=== PATIENT | male | born 1955 | race Caucasian/White ===

== ENCOUNTER 2021-01-09 21:01 | Emergency (ER) | payer MEDICARE, MEDICAID ==
--- NOTE | 2021-01-09 21:23 | ED Physician Documentation ---
History of Present Illness - Stated complaint Stated Complaint: SOA/VOM/TIRED/SORE THROAT - Chief complaint Chief Complaint: Resp - History obtained from History obtained from: Patient - History of Present Illness Timing: How many days ago (3-4) Pain level max: 0 Pain level now: 0 Improved by: rest Worsened by: exertion - Additonal information Additional information: patient c/o nausea and vomiting that began 3-4 days ago but that resolved yesterday. Around the same time as the nausea and vomiting began, he started having shortness of breath, mostly dyspnea on exertion, which persists despite the resolution of his n/v. He also c/o mild sore throat. Denies having, or having had, chest pain/tightness/squeezing/discomfort. He has no known pulmonary and/or cardiac problems. He says he hasn't seen a doctor in several years and stopped taking his glyburide and antihypertensive 2-3 years ago. He says he is COVID vaccinated, J+J vaccine at the beginning of this year. Review of Systems Constitutional: reports: Fatigue. denies: Fever, Chills, Sweats Eyes: reports: Reviewed and negative Ears: reports: Reviewed and negative Nose: reports: Reviewed and negative Throat: reports: Reviewed and negative Cardiac: denies: Chest pain / pressure, Palpitations, Pedal edema, Calf pain Respiratory: reports: Dyspnea, Cough (mild, CORRECTIVE THERAPIST (this is not part of his HPI, but discussed on ROS)). denies: Hemoptysis, Wheezing GI: reports: Nausea (resolved), Vomiting (resolved). denies: Abdominal Pain, Constipation, Diarrhea : reports: Reviewed and negative Skin: reports: Reviewed and negative Musculoskeletal: reports: Reviewed and negative Neurologic: reports: Reviewed and negative PD PAST MEDICAL HISTORY - Past Medical History Past Medical History: Yes Cardiovascular: Hypertension Endocrine/Autoimmune: Type 2 diabetes - Past Surgical History Past Surgical History: No - Present Medications Home Medications: Ambulatory Orders Medication Instructions Recorded Confirmed Losartan Potassium 50 mg PO DAILY #30 tablet 09/16/15 glyBURIDE [Diabeta] 5 mg PO DAILY #30 tablet 09/16/15 - Allergies Allergies/Adverse Reactions: Allergies Allergy/AdvReac Type Severity Reaction Status Date / Time No Known Drug Allergies Allergy Verified 01/09/21 21:16 - Social History Does the pt smoke?: Yes Smoking Status: Current every day smoker PD ED PE NORMAL - Vitals Vital signs reviewed: Yes - General General: Alert and oriented X 3, No acute distress, Well developed/nourished - HEENT HEENT: Moist mucous membranes - Neck Neck: Supple, no meningeal sign - Cardiac Cardiac: No murmur, No gallop, No rub - Respiratory Respiratory: No respiratory distress, Clear bilaterally - Abdomen Abdomen: Soft, Non tender - Derm Derm: Normal color, Warm and dry - Extremities Extremities: No edema - Neuro Neuro: Alert and oriented X 3 PD ED PE EXPANDED - Cardiac Cardiac: Tachy, Regular Rhythm Results - Vitals Vitals: Vital Signs - 24 hr 01/09/21 01/09/21 01/10/21 21:13 23:16 01:00 Temperature 37.5 C Heart Rate 142 H 118 H 109 H Respiratory 20 21 18 Rate Blood Pressure 128/93 H 125/93 H 131/101 H O2 Saturation 95 91 L 96 01/10/21 01/10/21 01/10/21 01:30 03:30 04:49 Temperature Heart Rate 109 H 101 H 110 H Respiratory 16 20 21 Rate Blood Pressure 131/101 H 91/78 115/78 O2 Saturation 95 95 94 Oxygen O2 Source Room air - EKG (time done) No standard instances Rate: Rate (enter#) Rhythm: Sinus tachycardia, LAE [place]: LAD, Other (nonspecific IVCD) Intervals: Normal [place], Wide QRS Ischemia: Q waves (V1-V6, II, II, AVF), Non specific changes (V1, V2) - Labs Labs: Laboratory Tests 01/09/21 01/09/21 01/09/21 22:18 22:18 22:18 WBC 10.2 RBC 6.25 H Hgb 18.2 H Hct 54.5 H MCV 87.2 MCH 29.1 MCHC 33.4 RDW 12.0 Plt Count 192 MPV 11.0 Neut # (Auto) 7.8 H Lymph # (Auto) 1.4 L [place] # (Auto) 0.9 Eos # (Auto) 0.0 Baso # (Auto) 0.0 Absolute Nucleated RBC 0.00 Nucleated RBC % 0.0 Sodium 128 L Potassium 4.0 Chloride 87 L Carbon Dioxide 26 Anion Gap 15.0 H BUN 32 H Creatinine 0.9 Estimated GFR (MDRD) 85 L Glucose 330 H Calcium 8.7 Total Bilirubin 1.8 H AST 41 ALT 28 Alkaline Phosphatase 77 Troponin I High Sens Total Protein 7.4 Albumin 3.4 Globulin 4.0 Albumin/Globulin Ratio 0.9 L Lipase 24 TSH 3.07 Urine Color Urine Clarity Urine pH Ur Specific [place] Urine Protein Urine Glucose (UA) Urine Ketones Urine Occult Blood Urine Nitrite Urine Bilirubin Urine Urobilinogen Ur Leukocyte Esterase Urine RBC Urine WBC Ur Squamous Epith Cells Urine Bacteria Ur Microscopic Review Urine Culture Comments Nasal Adenovirus (PCR) Nasal B. parapertussis DNA (PCR) Nasal Coronavir 229E PCR Nasal Coronavir HKU1 PCR Nasal Coronavir NL63 PCR Nasal Coronavir OC43 PCR Nasal Enterovir/Rhinovir PCR Nasal Influenza B PCR Nasal Influenza A PCR Nasal Parainfluen 1 PCR Nasal Parainfluen 2 PCR Nasal Parainfluen 3 PCR Nasal Parainfluen 4 PCR Nasal RSV (PCR) Nasal B.pertussis DNA PCR Nasal C.pneumoniae (PCR) Edvin Human Metapneumo PCR Nasal M.pneumoniae (PCR) Nasal SARS-CoV-2 (PCR) 01/09/21 01/10/21 01/10/21 22:18 00:10 01:28 WBC RBC Hgb Hct MCV MCH MCHC RDW Plt Count MPV Neut # (Auto) Lymph # (Auto) [place] # (Auto) Eos # (Auto) Baso # (Auto) Absolute Nucleated RBC Nucleated RBC % Sodium Potassium Chloride Carbon Dioxide Anion Gap BUN Creatinine Estimated GFR (MDRD) Glucose Calcium Total Bilirubin AST ALT Alkaline Phosphatase Troponin I High Sens 56286.2 H* Total Protein Albumin Globulin Albumin/Globulin Ratio Lipase TSH Urine Color YELLOW Urine Clarity CLEAR Urine pH 5.5 Ur Specific [place] 1.010 Urine Protein 100 H Urine Glucose (UA) >=1000 H Urine Ketones 40 H Urine Occult Blood MODERATE H Urine Nitrite NEGATIVE Urine Bilirubin NEGATIVE Urine Urobilinogen 1 (NORMAL) Ur Leukocyte Esterase NEGATIVE Urine RBC 6-10 H Urine WBC 0-3 Ur Squamous Epith Cells RARE Squamous Urine Bacteria Rare Ur Microscopic Review INDICATED Urine Culture Comments NOT INDICATED Nasal Adenovirus (PCR) NOT DETECTED Nasal B. parapertussis DNA (PCR) NOT DETECTED Nasal Coronavir 229E PCR NOT DETECTED Nasal Coronavir HKU1 PCR NOT DETECTED Nasal Coronavir NL63 PCR NOT DETECTED Nasal Coronavir OC43 PCR NOT DETECTED Nasal Enterovir/Rhinovir PCR NOT DETECTED Nasal Influenza B PCR NOT DETECTED Nasal Influenza A PCR NOT DETECTED Nasal Parainfluen 1 PCR NOT DETECTED Nasal Parainfluen 2 PCR NOT DETECTED Nasal Parainfluen 3 PCR NOT DETECTED Nasal Parainfluen 4 PCR NOT DETECTED Nasal RSV (PCR) NOT DETECTED Nasal B.pertussis DNA PCR NOT DETECTED Nasal C.pneumoniae (PCR) NOT DETECTED Edvin Human Metapneumo PCR NOT DETECTED Nasal M.pneumoniae (PCR) NOT DETECTED Nasal SARS-CoV-2 (PCR) NOT DETECTED - Rads (name of study) CT chest angio (PE study) Radiology: Discussed with rads, Other (due to electronic difficulties with the PACS system, images cannot be transmitted. Read by on-site radiologist who discussed results with me over phone: no evidence of PE. Left hemidiaphragm elevation, new compared to 2011. Atelectasis left lung base) PD MEDICAL DECISION MAKING - ED course Complexity details: reviewed results, re-evaluated patient, considered differential, d/w patient ED course: Several c/o in HPI. He says after eating a burger 3-4 days ago, he pulled a worm from his mouth and developed nausea, vomiting. Around this time he also developed shortness of breath. The nausea and vomiting resolved yesterday but the dyspnea, particularly on exertion, persist. He denies chest discomfort. He is in sinus tachycardia for entire ED stay (late in stay, metoprolol IV was ordered but SBP 91 precluded this). He has a markedly elevated troponin, and abnormal EKG without previous EKG for comparison. Will need further testing inpatient setting including echo. No echo available through weekend at [facility] [place], and no cardiology services at [facility] [place]. D/w Dr. Palm (cardiology at [facility]), agrees with transfer, recommends heparin, and admit to hospitalist. D/W Dr. Ram, hospitalist at [facility], accepts transfer. He asks that atorvastatin 40mg be given as well as metoprolol (see above). Note that we had already contacted [facility], [facility] ([place]), [facility], and [facility] and no tele beds available. [facility] was contacted but did not hear back from them. [facility] also has no beds. Departure - Departure Disposition: 02 Transfer Acute Care Hosp Clinical Impression: NSTEMI (non-ST elevated myocardial infarction) Condition: Stable Discharge Date/Time: 01/10/21 05:08
[2021-01-09] MEDS ORDERED: IOPAMIDOL-300 100 ML VIAL ONE (22:28)
[2021-01-09 22:29] LABS: BASOPHILS % (AUTO) 0.4 %; EOSINOPHILS % (AUTO) 0.3 %; HCT - HEMATOCRIT 54.5 % (42.0-52.0); HGB - HEMOGLOBIN 18.2 g/dL (14.0-18.0); LYMPHOCYTES # (AUTO) 1.4 10^3/uL (1.5-3.5); LYMPHOCYTES % (AUTO) 13.6 %; MEAN CORPUSCULAR HEMOGLOBIN 29.1 pg (27.0-31.0); MEAN CORPUSCULAR HGB CONC 33.4 g/dL (32.0-36.0); MEAN CORPUSCULAR VOLUME 87.2 fL (80.0-94.0); MONOCYTES # (AUTO) 0.9 10^3/uL (0.0-1.0); MONOCYTES % (AUTO) 8.8 %; NEUTROPHILS # (AUTO) 7.8 10^3/uL (1.5-6.6); NEUTROPHILS % (AUTO) 76.7 %; PLT - PLATELET COUNT 192 10^3/uL (130-450); RED BLOOD COUNT 6.25 10^6/uL (4.70-6.10); WHITE BLOOD COUNT 10.2 x10^3/uL (4.8-10.8)
[2021-01-09 22:36] LABS: ALBUMIN 3.4 g/dL (3.2-5.5); ALBUMIN/GLOBULIN RATIO 0.9 (1.0-2.2); BILIRUBIN,TOTAL 1.8 mg/dL (0.2-1.0); CALCIUM 8.7 mg/dL (8.5-10.3); CREATININE 0.9 mg/dL (0.6-1.2); TOTAL PROTEIN 7.4 g/dL (6.7-8.2)
[2021-01-09] MEDS ORDERED: IOPAMIDOL-300 100 ML VIAL IVP ONE (23:20)
[2021-01-10 00:21] LABS: BILIRUBIN,URINE NEGATIVE (NEGATIVE); CLARITY,URINE CLEAR (CLEAR); GLUCOSE, URINE (UA) >=1000 mg/dL (NEGATIVE); KETONES,URINE (UA) 40 mg/dL (NEGATIVE); LEUKOCYTE ESTERASE, URINE NEGATIVE (NEGATIVE); NITRITE,URINE NEGATIVE (NEGATIVE); OCCULT BLOOD,URINE MODERATE (NEGATIVE); PH,URINE 5.5 PH (5.0-7.5); PROTEIN,URINE 100 mg/dL (NEGATIVE); UROBILINOGEN,URINE 1 (NORMAL) E.U./dL (NORMAL)
[2021-01-10 00:24] LABS: BACTERIA,URINE Rare /HPF (None Seen); SQUAMOUS EPITHELIAL CELL,UR RARE Squamous (<= Few); WBC,URINE 0-3 /HPF (0-3)
[2021-01-10 02:23] LABS: B. PARAPERTUSSIS- RESP PCR PAN NOT DETECTED; B. PERTUSSIS- RESP PCR PANEL NOT DETECTED; C. PNEUMONIAE- RESP PCR PANEL NOT DETECTED; CORONAVIRUS 229E-RESP PCR NOT DETECTED; CORONAVIRUS HKU1-RESP PCR NOT DETECTED; CORONAVIRUS NL63-RESP PCR NOT DETECTED; CORONAVIRUS OC43-RESP PCR NOT DETECTED; HUMAN METAPNEUMOVIRUS NOT DETECTED; INFLUENZA A- RESP PCR PANEL NOT DETECTED; INFLUENZA B - RESP PCR PANEL NOT DETECTED; M. PNEUMONIAE- RESP PCR PANEL NOT DETECTED; PARAINFLUENZA VIRUS 1 NOT DETECTED; PARAINFLUENZA VIRUS 2 NOT DETECTED; PARAINFLUENZA VIRUS 3 NOT DETECTED; PARAINFLUENZA VIRUS 4 NOT DETECTED; RHINOVIRUS/ENTEROVIRUS NOT DETECTED; RSV- RESP PCR PANEL NOT DETECTED; SARS-CoV-2 -RESP PCR PANEL NOT DETECTED
[2021-01-10] MEDS ORDERED: ASPIRIN CHEW 81 MG TABLET PO STA (03:10)
[2021-01-10] MEDS ORDERED: ATORVASTATIN 40 MG TABLET PO STA (03:11)
[2021-01-10] MEDS ORDERED: METOPROLOL 5 MG/5 ML VIAL IVP STA (03:12)
[2021-01-10] MEDS ORDERED: HEPARIN 25000UNITS/500ML (D5W) 25,000 UNIT/500 ML BAG IV SCH (04:00)
[2021-01-10 04:50] VITALS: BP 115/78
--- NOTE | 2021-01-10 13:29 | CT Report ---
PROCEDURE: ANGIO CHEST W/WO INDICATIONS: dyspnea, tachycardia, low pulse ox CONTRAST: IV CONTRAST: Isovue 300 ml: 100 PO CONTRAST: *NO PO CONTRAST TECHNIQUE: After the administration of intravenous contrast, images were acquired from the pulmonary apices to t he posterior costophrenic angles. 3-dimensional maximum intensity projection (MIP) coronal and sagit neftaly reformats were then acquired through the thorax. For radiation dose reduction, the following was used: automated exposure control, adjustment of mA and/or kV according to patient size. COMPARISON: Chest radiographs 08/21/2012 FINDINGS: Image quality: Excellent. Pulmonary arteries: Pulmonary arteries are normal in size, and demonstrate no intraluminal filling d efects to suggest central pulmonary embolism. Lungs and pleura: There is mild elevation of the left hemidiaphragm with atelectasis of the left lung base, which is new when compared to the remote prior exam from 2012. No pleural effusions or pneumot horax. Central and peripheral airways are patent. Mediastinum: Heart size is normal, without pericardial effusion. Coronary calcifications are presen t. No mediastinal or hilar adenopathy. Thoracic aorta is normal in caliber and enhancement. Esophag us is normal in caliber, without hiatal hernia. Bones and chest wall: No suspicious bony lesions. Mild degenerative changes are seen in the included spine. No axillary or supraclavicular adenopathy. The thyroid is normal in size and there are no in cidental findings. Abdomen: Visualized upper abdominal solid organs appear normal in the early arterial phase of enhanc ement. IMPRESSION: 1. No acute pulmonary embolus. 2. Mild elevation of the left hemidiaphragm with atelectasis of the left lung base. This finding is new when compared to the remote prior study from 08/21/2012. If clinically indicated, a fluoroscopic s niff test could be performed to evaluate diaphragmatic motor function. Preliminary findings were discussed with the emergency department physician, Dr. Nayak, on the night the study was performed, and this report is being submitted later secondary to system downtime. Reviewed by: Nikko Paulino MD on 01/10/2021 1:28 PM PDT Approved by: Nikko Paulino MD on 01/10/2021 1:28 PM PDT Station ID: [id number]
== END 2021-01-10 05:08 | disposition short-term general hospital (02) ==
LOC: ED 21:01
DX: I21.4 Non-ST elevation (NSTEMI) myocardial infarction (principal); F17.200 Nicotine dependence, unspecified, uncomplicated; Z20.822 Contact with and (suspected) exposure to COVID-19
CPT/HCPCS: 36415; 71275; 80053; 81001; 83690; 84443; 84484; 85025; 87631; 93005; 96374; 99284; 99285; A9270; Q9967; 0202U; 81003; 87086

== ENCOUNTER 2021-01-10 05:02 | Outpatient (CLI) | payer MEDICARE, MEDICAID | END 2021-01-10 23:59 | disposition short-term general hospital (02) | LOC: EMS 05:02 | PROVIDERS: ATTEND Emergency Medicine | DX: I21.4 Non-ST elevation (NSTEMI) myocardial infarction (principal) | CPT/HCPCS: A0425; A0426 ==

== ENCOUNTER 2021-04-24 10:03 | Outpatient (CLI) | payer MEDICARE, MEDICAID | END 2021-04-24 10:04 | disposition critical access hospital (66) | LOC: EMS 10:03 | DX: R06.02 Shortness of breath (principal); R19.7 Diarrhea, unspecified; I95.9 Hypotension, unspecified | CPT/HCPCS: A0425; A0429 ==

== ENCOUNTER 2021-06-06 12:32 | Outpatient (CLI) | payer MEDICARE, MEDICAID | END 2021-06-06 12:33 | disposition critical access hospital (66) | LOC: EMS 12:32 | DX: R06.00 Dyspnea, unspecified (principal); R60.0 Localized edema | CPT/HCPCS: A0425; A0429 ==

== ENCOUNTER 2021-06-06 13:00 | Emergency (ER) | payer MEDICARE, MEDICAID ==
--- NOTE | 2021-06-06 13:20 | ED Physician Documentation ---
PD HPI DYSPNEA - Stated complaint Stated Complaint: SOA - Chief complaint Chief Complaint: Resp - History obtained from History obtained from: Patient - Additional information Additional information: 66-year-old gentleman with history of tobacco abuse is approximately 3 months out from coronary bypass, three-vessel, done at [facility] ([place], [place]). He was seen here on April 24 and diagnosed with both pleural and pericardial effusions. He had a thoracentesis and was transferred to [facility] ([place], [place]) where per his report had repeat thoracentesis and also a pericardiocentesis. He presents today with shortness of breath over maybe 3 days consistent with prior episodes of pleural/pericardial effusion. He denies chest pain, pedal edema, or cough. Review of Systems Ten Systems: 10 systems reviewed and negative Constitutional: denies: Fever, Chills Cardiac: denies: Chest pain / pressure, Palpitations Respiratory: reports: Dyspnea. denies: Cough GI: denies: Abdominal Pain, Nausea, Vomiting PD PAST MEDICAL HISTORY - Past Medical History Cardiovascular: Hypertension, Coronary artery disease, [place] Respiratory: Shortness of breath, Sleep apnea Neuro: Peripheral neuropathy Endocrine/Autoimmune: Type 2 diabetes GI: Ulcers : None HEENT: Chronic vision loss, Other Psych: Depression Musculoskeletal: None Derm: None - Past Surgical History Past Surgical History: Yes Cardiovascular: CABG - Present Medications Home Medications: Ambulatory Orders Medication Instructions Recorded Confirmed Losartan Potassium 50 mg PO DAILY #30 tablet 09/16/15 glyBURIDE [Diabeta] 5 mg PO DAILY #30 tablet 09/16/15 Acetaminophen [Pain Relief Extra 500 mg PO Q6HR PRN 04/24/21 04/24/21 Strength] Aspirin [Aspirin EC] 162 mg PO DAILY 04/24/21 04/24/21 Atorvastatin Calcium [Lipitor] 80 mg PO DAILY PM 04/24/21 04/24/21 Gabapentin [Neurontin] 100 mg PO TID 04/24/21 04/24/21 Insulin Glargine [Lantus Solostar] 28 units SQ DAILY 04/24/21 04/24/21 Sennosides/Docusate Sodium 1 each PO DAILY 04/24/21 04/24/21 [Senna-S Tablet] bisacodyL [Dulcolax] 5 mg PO DAILY PRN 04/24/21 04/24/21 metFORMIN [Glucophage] 1,000 mg PO BIDWM 04/24/21 04/24/21 oxyCODONE [Roxicodone] 2.5 - 10 mg PO Q4HR PRN 04/24/21 04/24/21 - Allergies Allergies/Adverse Reactions: Allergies Allergy/AdvReac Type Severity Reaction Status Date / Time No Known Drug Allergies Allergy Verified 06/06/21 13:13 - Social History Does the pt smoke?: Yes Smoking Status: Current some day smoker Does the pt drink ETOH?: No Does the pt have substance abuse?: No - Immunizations Immunizations are current?: Yes - POLST Patient has POLST: No PD ED PE NORMAL - Vitals Vital signs reviewed: Yes - General General: Alert and oriented X 3, No acute distress - HEENT HEENT: PERRL, EOMI - Neck Neck: Supple, no meningeal sign, No bony TTP - Cardiac Cardiac: RRR, No murmur, Other (Very faint heart tones) - Respiratory Respiratory: No respiratory distress, Other (Rhonchorous throughout the left lung but only minimally diminished, no respiratory distress.) - Abdomen Abdomen: Soft, Non tender - Back Back: No CVA TTP, No spinal TTP - Derm Derm: Normal color, Warm and dry - Extremities Extremities: Other (Trace pitting pedal edema, symmetric) - Neuro Neuro: Alert and oriented X 3, Normal speech Results - Vitals Vitals: Vital Signs - 24 hr 06/06/21 06/06/21 06/06/21 13:13 13:16 15:16 Temperature 37.0 C 37.0 C Heart Rate 100 100 94 Respiratory 24 24 18 Rate Blood Pressure 128/94 H 128/94 H 116/91 H O2 Saturation 97 97 92 06/06/21 06/06/21 06/06/21 16:14 18:00 20:00 Temperature 36.5 C 36.5 C Heart Rate 92 96 Respiratory 24 21 Rate Blood Pressure 122/91 H 125/86 H O2 Saturation 85 L 99 97 Oxygen O2 Source Nasal cannula Oxygen Flow Rate 2 - EKG (time done) 1323 Rate: Rate (enter#) (96) Rhythm: NSR (w 1 pvc), LAE [place]: Normal Intervals: Normal [place] QRS: Low voltage Ischemia: Q waves (V1-V3). No: ST elevation c/w ischemia, ST depression - Labs Labs: Laboratory Tests 06/06/21 06/06/21 06/06/21 13:29 13:29 13:29 WBC 6.5 RBC 4.17 L Hgb 11.2 L Hct 37.4 L MCV 89.7 MCH 26.9 L MCHC 29.9 L RDW 16.1 H Plt Count 228 MPV 10.7 Neut # (Auto) 4.6 Lymph # (Auto) 1.3 L [place] # (Auto) 0.4 Eos # (Auto) 0.1 Baso # (Auto) 0.0 Absolute Nucleated RBC 0.00 Nucleated RBC % 0.0 PT 16.2 H INR 1.5 H Sodium 136 Potassium 3.9 Chloride 99 L Carbon Dioxide 28 Anion Gap 9.0 BUN 20 Creatinine 0.9 Estimated GFR (MDRD) 84 L Glucose 135 H Calcium 8.9 Magnesium 1.8 Total Bilirubin < 0.2 L AST 48 H ALT 48 Alkaline Phosphatase 214 H B-Natriuretic Peptide Total Protein 6.8 Albumin 2.9 L Globulin 3.9 Albumin/Globulin Ratio 0.7 L Nasal Adenovirus (PCR) Nasal B. parapertussis DNA (PCR) Nasal Coronavir 229E PCR Nasal Coronavir HKU1 PCR Nasal Coronavir NL63 PCR Nasal Coronavir OC43 PCR Nasal Enterovir/Rhinovir PCR Nasal Influenza B PCR Nasal Influenza A PCR Nasal Parainfluen 1 PCR Nasal Parainfluen 2 PCR Nasal Parainfluen 3 PCR Nasal Parainfluen 4 PCR Nasal RSV (PCR) Nasal B.pertussis DNA PCR Nasal C.pneumoniae (PCR) Edvin Human Metapneumo PCR Nasal M.pneumoniae (PCR) Nasal SARS-CoV-2 (PCR) 06/06/21 06/06/21 13:29 14:59 WBC RBC Hgb Hct MCV MCH MCHC RDW Plt Count MPV Neut # (Auto) Lymph # (Auto) [place] # (Auto) Eos # (Auto) Baso # (Auto) Absolute Nucleated RBC Nucleated RBC % PT INR Sodium Potassium Chloride Carbon Dioxide Anion Gap BUN Creatinine Estimated GFR (MDRD) Glucose Calcium Magnesium Total Bilirubin AST ALT Alkaline Phosphatase B-Natriuretic Peptide 139 H Total Protein Albumin Globulin Albumin/Globulin Ratio Nasal Adenovirus (PCR) NOT DETECTED Nasal B. parapertussis DNA (PCR) NOT DETECTED Nasal Coronavir 229E PCR NOT DETECTED Nasal Coronavir HKU1 PCR NOT DETECTED Nasal Coronavir NL63 PCR NOT DETECTED Nasal Coronavir OC43 PCR NOT DETECTED Nasal Enterovir/Rhinovir PCR NOT DETECTED Nasal Influenza B PCR NOT DETECTED Nasal Influenza A PCR NOT DETECTED Nasal Parainfluen 1 PCR NOT DETECTED Nasal Parainfluen 2 PCR NOT DETECTED Nasal Parainfluen 3 PCR NOT DETECTED Nasal Parainfluen 4 PCR NOT DETECTED Nasal RSV (PCR) NOT DETECTED Nasal B.pertussis DNA PCR NOT DETECTED Nasal C.pneumoniae (PCR) NOT DETECTED Edvin Human Metapneumo PCR NOT DETECTED Nasal M.pneumoniae (PCR) NOT DETECTED Nasal SARS-CoV-2 (PCR) NOT DETECTED - Rads (name of study) CTA Chest Radiology: EMP read contemporaneously PD MEDICAL DECISION MAKING - ED course ED course: CTA Chest IMPRESSION: 1. No evidence of pulmonary embolus, aortic dissection or aneurysm. 2. Loculated pericardial effusion with possible mass effect on the right atrium. Consider follow-up dedicated echocardiogram. 3. Moderate bilateral pleural effusions, elevated left hemidiaphragm, and associated left atelectasis and or infiltrate, improved from the prior The appearance of the pleural effusions are much better, and while this may be causing some of his symptoms I suspect the pericardial effusion is more causing his symptoms especially since it is loculated with a suggestion of mass-effect on the right atrium. He is hemodynamically okay without hypotension or significant tachycardia, but probably does need to go to a facility with the ability to do echocardiogram and or pericardiocentesis, we are able to do neither of these, no echo on the weekends and no pericardiocentesis ever basically. As such [facility] ([place], [place]) was called for transfer of units before 3 PM. Case discussed by phone with Dr. Lilly, cardiology at [facility] ([place], [place]) at about 3:18 PM and agrees with transfer, defers to ICU versus hospitalist for admission. I spoke with Dr. Petit, network support at [facility] ([place], [place]), she is considering the case, but unclear if she will accept, [facility] ([place], [place]) will call me back. This was approximately 3:[address] [facility] ([place], [place]) by Dr. Jeanette Chang, hospitalist at 3:50 PM. [place] were completed and he is apparently stable for transport. Subsequently a few minutes before 5 PM were recalled back and [facility] ([place], [place]) was doubtful that they would have a bed available for him today so the search was widened for other facilities able to take him in transfer. Spoke with [facility] approximately 5:20 PM, they do not have beds. Presented care to Dr Garcia (cardiology/hospitalist) at [facility] apprx 620pm. And he was graciously accepted to [facility] by them for further evaluation and treatment. Departure - Departure Disposition: 02 Transfer Acute Care Hosp Clinical Impression: Pericardial effusion Dyspnea Qualifiers: Dyspnea type: shortness of breath Qualified Code(s): R06.02 - Shortness of breath Condition: Good Discharge Date/Time: 06/06/21 20:17
[2021-06-06 13:37] LABS: BASOPHILS % (AUTO) 0.5 %; EOSINOPHILS # (AUTO) 0.1 10^3/uL (0.0-0.7); EOSINOPHILS % (AUTO) 1.2 %; HCT - HEMATOCRIT 37.4 % (42.0-52.0); HGB - HEMOGLOBIN 11.2 g/dL (14.0-18.0); LYMPHOCYTES # (AUTO) 1.3 10^3/uL (1.5-3.5); LYMPHOCYTES % (AUTO) 19.9 %; MEAN CORPUSCULAR HEMOGLOBIN 26.9 pg (27.0-31.0); MEAN CORPUSCULAR HGB CONC 29.9 g/dL (32.0-36.0); MEAN CORPUSCULAR VOLUME 89.7 fL (80.0-94.0); MEAN PLATELET VOLUME 10.7 fL (7.4-11.4); MONOCYTES # (AUTO) 0.4 10^3/uL (0.0-1.0); MONOCYTES % (AUTO) 6.3 %; NEUTROPHILS # (AUTO) 4.6 10^3/uL (1.5-6.6); NEUTROPHILS % (AUTO) 71.6 %; PLT - PLATELET COUNT 228 10^3/uL (130-450); RED BLOOD COUNT 4.17 10^6/uL (4.70-6.10); RED CELL DISTRIBUTION WIDTH 16.1 % (12.0-15.0); WHITE BLOOD COUNT 6.5 x10^3/uL (4.8-10.8)
[2021-06-06] MEDS ORDERED: IOVERSOL 320 100 ML VIAL IVP ONE ×2 (13:38→14:36)
[2021-06-06 13:53] LABS: ALBUMIN 2.9 g/dL (3.2-5.5); ALBUMIN/GLOBULIN RATIO 0.7 (1.0-2.2); ALKALINE PHOSPHATASE 214 IU/L (42-121); ALT ALANINE AMINOTRANSFERASE 48 IU/L (10-60); AST ASPARTATE AMINOTRANSFERASE 48 IU/L (10-42); BILIRUBIN,TOTAL < 0.2 mg/dL (0.2-1.0); BUN - BLOOD UREA NITROGEN 20 mg/dL (6-20); CALCIUM 8.9 mg/dL (8.5-10.3); CARBON DIOXIDE - CO2 28 mmol/L (21-32); CHLORIDE 99 mmol/L (101-111); CREATININE 0.9 mg/dL (0.6-1.2); GFR - MDRD 84 (>89); GLUCOSE 135 mg/dL (70-100); MAGNESIUM 1.8 mg/dL (1.7-2.8); POTASSIUM 3.9 mmol/L (3.5-5.0); SODIUM 136 mmol/L (135-145); TOTAL PROTEIN 6.8 g/dL (6.7-8.2)
[2021-06-06 14:16] LABS: INR 1.5 (0.8-1.2); PT - PROTHROMBIN TIME 16.2 secs (9.9-12.6)
--- NOTE | 2021-06-06 14:51 | CT Report ---
PROCEDURE: CT chest angiogram with contrast INDICATIONS: dyspnea, pe protocol CONTRAST: IV CONTRAST: Optiray 320 ml: 100 PO CONTRAST: *NO PO CONTRAST TECHNIQUE: After the administration of intravenous contrast, 2 mm axial images were acquired from th e pulmonary apices to the posterior costophrenic angles during the arterial phase. In addition, 1 mm lung kernel and 5 mm soft tissue kernel reconstructions were performed. For radiation dose reduction, the following was used: automated exposure control, adjustment of mA and/or kV according to patient size. COMPARISON: 01/09/2021, 04/24/2021 FINDINGS: Image quality: Excellent. Pulmonary arteries: Pulmonary arteries are normal in size, and demonstrate no intraluminal filling d efects to suggest central pulmonary embolism. Lungs and pleura: Moderate bilateral pleural effusions are present. Elevated right hemidiaphragm asso ciated with compressive atelectasis, improved from prior. Mediastinum: Heart size within normal limits. There is a moderate pericardial effusion which is somew hat loculated and appears to be compressing the right atrium. Dense coronary artery vascular calcific ation noted as well. Bones and chest wall: No suspicious bony lesions. Ribs and thoracic spine appear intact throughout. No axillary or supraclavicular adenopathy. The thyroid is normal in size and there are no incident al findings. Midline sternal wiring mediastinal vascular clips noted. Abdomen: Visualized upper abdominal solid organs appear normal in the early arterial phase of enhanc ement. IMPRESSION: 1. No evidence of pulmonary embolus, aortic dissection or aneurysm. 2. Loculated pericardial effusion with possible mass effect on the right atrium. Consider follow-up d edicated echocardiogram. 3. Moderate bilateral pleural effusions, elevated left hemidiaphragm, and associated left atelectasis and or infiltrate, improved from the prior Reviewed by: Slick Murillo MD on 06/06/2021 1:50 PM [place] Approved by: Slick Murillo MD on 06/06/2021 1:50 PM [facility] Station ID: [id number]
[2021-06-06 15:57] LABS: B. PARAPERTUSSIS- RESP PCR PAN NOT DETECTED; B. PERTUSSIS- RESP PCR PANEL NOT DETECTED; C. PNEUMONIAE- RESP PCR PANEL NOT DETECTED; CORONAVIRUS 229E-RESP PCR NOT DETECTED; CORONAVIRUS HKU1-RESP PCR NOT DETECTED; CORONAVIRUS NL63-RESP PCR NOT DETECTED; CORONAVIRUS OC43-RESP PCR NOT DETECTED; HUMAN METAPNEUMOVIRUS NOT DETECTED; INFLUENZA A- RESP PCR PANEL NOT DETECTED; INFLUENZA B - RESP PCR PANEL NOT DETECTED; M. PNEUMONIAE- RESP PCR PANEL NOT DETECTED; PARAINFLUENZA VIRUS 1 NOT DETECTED; PARAINFLUENZA VIRUS 2 NOT DETECTED; PARAINFLUENZA VIRUS 3 NOT DETECTED; PARAINFLUENZA VIRUS 4 NOT DETECTED; RHINOVIRUS/ENTEROVIRUS NOT DETECTED; RSV- RESP PCR PANEL NOT DETECTED; SARS-CoV-2 -RESP PCR PANEL NOT DETECTED
[2021-06-06 20:17] VITALS: BP 125/86
== END 2021-06-06 20:17 | disposition short-term general hospital (02) ==
LOC: EDUNIT# → ED 13:00
DX: I31.3 Pericardial effusion (noninflammatory) (principal); Z20.822 Contact with and (suspected) exposure to COVID-19; F17.200 Nicotine dependence, unspecified, uncomplicated
CPT/HCPCS: 36415; 71275; 80053; 83735; 83880; 85025; 85610; 87631; 93005; 99283; 99285; Q9967; 0202U

== ENCOUNTER 2022-09-23 17:13 | Outpatient (CLI) | payer MEDICARE, MEDICAID | END 2022-09-23 23:59 | disposition critical access hospital (66) | LOC: EMS 17:13 | DX: R55 Syncope and collapse (principal); R56.9 Unspecified convulsions; R41.82 Altered mental status, unspecified; R11.2 Nausea with vomiting, unspecified | CPT/HCPCS: A0425; A0427 ==

== ENCOUNTER 2022-09-23 17:38 | Observation (INO) | payer MEDICARE, MEDICAID ==
[2022-09-23] MEDS ORDERED: SODIUM CHLORIDE 0.9% 1,000 ML IV STA (17:45)
[2022-09-23] MEDS ORDERED: ONDANSETRON 4 MG/2 ML VIAL IVP STA (17:45)
--- NOTE | 2022-09-23 17:47 | ED Physician Documentation ---
History of Present Illness - Stated complaint Stated Complaint: POSS SZ/SYNCOPAL EPISODE - Additonal information Additional information: 67-year-old male was brought to the emergency department by EMS for evaluation of lapse in consciousness. Reportedly the patient was walking when he suddenly collapsed at home. His family went to him and found that he appeared to be cyanotic. The family also described what sounds like possible seizure activity on scene. They attempted to arouse the patient for for about 30 seconds before he become awake. When he did arouse he was found to be nonverbal and started to vomit. EMS arrived and found that he had a negative FAST exam. His blood glucose was 160. The patient does have a history of hypertension as well as three-vessel CABG. He denies taking any current medications because he states that he has no way to go to the store to fill them. He does smoke 1 pack/day of tobacco. Presentation in the emergency department he is alert with no focal deficits but actively vomiting. Patient is denying any chest pain or shortness of air. Denies abdominal pain just endorses nausea Review of Systems Eyes: reports: Reviewed and negative Nose: reports: Rhinorrhea / runny nose Cardiac: reports: Reviewed and negative Respiratory: reports: Reviewed and negative GI: reports: Vomiting : reports: Reviewed and negative Skin: reports: Reviewed and negative PD PAST MEDICAL HISTORY - Past Medical History Cardiovascular: Hypertension, Coronary artery disease, [place] Respiratory: Shortness of breath, Sleep apnea Neuro: Peripheral neuropathy Endocrine/Autoimmune: Type 2 diabetes GI: Ulcers : None HEENT: Chronic vision loss, Other Psych: Depression Musculoskeletal: None Derm: None - Past Surgical History Past Surgical History: Yes Cardiovascular: CABG - Present Medications Home Medications: Ambulatory Orders Medication Instructions Recorded Confirmed Losartan Potassium 50 mg PO DAILY #30 tablet 09/16/15 glyBURIDE [Diabeta] 5 mg PO DAILY #30 tablet 09/16/15 Acetaminophen [Pain Relief Extra 500 mg PO Q6HR PRN 04/24/21 04/24/21 Strength] Aspirin [Aspirin EC] 162 mg PO DAILY 04/24/21 04/24/21 Atorvastatin Calcium [Lipitor] 80 mg PO DAILY PM 04/24/21 04/24/21 Gabapentin [Neurontin] 100 mg PO TID 04/24/21 04/24/21 Insulin Glargine [Lantus Solostar] 28 units SQ DAILY 04/24/21 04/24/21 Sennosides/Docusate Sodium 1 each PO DAILY 04/24/21 04/24/21 [Senna-S Tablet] bisacodyL [Dulcolax] 5 mg PO DAILY PRN 04/24/21 04/24/21 metFORMIN [Glucophage] 1,000 mg PO BIDWM 04/24/21 04/24/21 oxyCODONE [Roxicodone] 2.5 - 10 mg PO Q4HR PRN 04/24/21 04/24/21 - Allergies Allergies/Adverse Reactions: Allergies Allergy/AdvReac Type Severity Reaction Status Date / Time No Known Drug Allergies Allergy Verified 06/06/21 13:13 - Social History Does the pt smoke?: Yes Smoking Status: Current some day smoker Does the pt drink ETOH?: No Does the pt have substance abuse?: No - Immunizations Immunizations are current?: Yes - POLST Patient has POLST: No PD ED PE NORMAL - General General: Alert and oriented X 3, Well developed/nourished (Appears older than stated age. Poor hygiene, disheveled). No: No acute distress (Vomiting) - HEENT HEENT: Atraumatic, Moist mucous membranes. No: Pharynx benign (Adentulous) - Neck Neck: Supple, no meningeal sign - Cardiac Cardiac: RRR, No murmur, Strong equal pulses - Respiratory Respiratory: No respiratory distress - Abdomen Abdomen: Normal bowel sounds, Soft, Non tender, Non distended - Back Back: No CVA TTP - Derm Derm: Normal color, Warm and dry, No rash - Extremities Extremities: No deformity - Neuro Neuro: Alert and oriented X 3, oxidation operator 2-12 intact, Normal speech Eye Opening: Spontaneous Motor: Obeys Commands Verbal: Oriented GCS Score: 15 Results - Vitals Vitals: Vital Signs - 24 hr 09/23/22 09/23/22 17:48 18:03 Temperature 36.9 C Heart Rate 90 Heart Rate [ 84 Sitting] Heart Rate [ 94 Standing] Heart Rate [ 90 Supine] Respiratory 18 Rate Blood Pressure 159/109 H Blood Pressure 141/99 H [Sitting] Blood Pressure 204/166 H [Standing] Blood Pressure 140/105 H [Supine] O2 Saturation 98 Oxygen O2 Source Room air - EKG (time done) 1745 EKG releavant findings:: EKG personally interpreted by author of this note. Relevant findings are: Rate: Rate (enter#) (88) Rhythm: NSR [place]: Normal Intervals: Normal [place]. No: Prolonged QT Ischemia: Q waves (inferior leads) Compare to prior EKG: Unchanged from prior EKG Computer interpretation: Agree with computer - Labs Labs: Laboratory Tests 09/23/22 09/23/22 09/23/22 17:42 17:57 17:57 WBC 5.1 RBC 5.90 Hgb 17.2 Hct 51.7 MCV 87.6 MCH 29.2 MCHC 33.3 RDW 12.6 Plt Count 162 MPV 11.1 Neut # (Auto) 3.4 Lymph # (Auto) 1.3 L [place] # (Auto) 0.3 Eos # (Auto) 0.1 Baso # (Auto) 0.0 Absolute Nucleated RBC 0.00 Nucleated RBC % 0.0 Sodium 139 Potassium 3.4 L Chloride 102 Carbon Dioxide 28 Anion Gap 9.0 BUN 14 Creatinine 1.1 Estimated GFR (MDRD) 67 L Glucose 230 H POC Whole Bld Glucose 220 H Calcium 8.9 Total Bilirubin 0.9 AST 36 ALT 24 Alkaline Phosphatase 87 Troponin I High Sens Total Protein 7.2 Albumin 3.5 Globulin 3.7 Albumin/Globulin Ratio 0.9 L Lipase 28 Urine Opiates Screen Ur Oxycodone Screen Urine Methadone Screen Ur Propoxyphene Screen Ur Barbiturates Screen Ur Tricyclics Screen Ur Phencyclidine Scrn Ur Amphetamine Screen U Methamphetamines Scrn U Benzodiazepines Scrn Urine Cocaine Screen U Cannabinoids Screen Ethyl Alcohol < 5.0 Serum Ketones NEGATIVE 09/23/22 09/23/22 17:57 18:11 WBC RBC Hgb Hct MCV MCH MCHC RDW Plt Count MPV Neut # (Auto) Lymph # (Auto) [place] # (Auto) Eos # (Auto) Baso # (Auto) Absolute Nucleated RBC Nucleated RBC % Sodium Potassium Chloride Carbon Dioxide Anion Gap BUN Creatinine Estimated GFR (MDRD) Glucose POC Whole Bld Glucose Calcium Total Bilirubin AST ALT Alkaline Phosphatase Troponin I High Sens 10.1 Total Protein Albumin Globulin Albumin/Globulin Ratio Lipase Urine Opiates Screen NEGATIVE Ur Oxycodone Screen NEGATIVE Urine Methadone Screen NEGATIVE Ur Propoxyphene Screen NEGATIVE Ur Barbiturates Screen NEGATIVE Ur Tricyclics Screen NEGATIVE Ur Phencyclidine Scrn NEGATIVE Ur Amphetamine Screen NEGATIVE U Methamphetamines Scrn NEGATIVE U Benzodiazepines Scrn NEGATIVE Urine Cocaine Screen NEGATIVE U Cannabinoids Screen POSITIVE H Ethyl Alcohol Serum Ketones - Rads (name of study) abd/pelvis Relevant Findings:: Final report received (Focal loop of mild descending colonic bowel wall thickening. Focus of mild early colitis cannot be excluded, likely secondary to diverticulitis. Improved appearance of identified pericardial effusion with persistent although decreased loculated anterior fluid) CT head Relevant Findings:: Final report received (No acute intracranial process) CXR Relevant Findings:: Final report received (No acute cardiopulmonary process) PD Medical Decision Making - ED course Complexity details: reviewed results, re-evaluated patient, d/w patient ED course: 67-year-old male who has a history of uncontrolled diabetes as well as previous three-vessel CABG presents to the emergency department for evaluation of a lapse in consciousness. Patient reports he was walking to the bathroom and did not have any prodromal symptoms when he suddenly collapsed. Family at home reported that he had lost consciousness for about 30 seconds. They also reported to EMS that he may have had some seizure-like activity on the scene though this was not corroborated. For EMS the patient had a negative FAST exam. His blood sugar was 160. He however did start vomiting and on arrival to the emergency department was actively dry heaving. On presentation he appears much older than stated age and is quite disheveled. He reports to me he does not take any of the prescribed medications for his known heart disease or diabetes because he has been unable to go to the pharmacy to fill the medications. However he is denying chest pain or shortness of air. I obtained a CBC, electrolytes and troponin. With the exception of an elevated hemoglobin, likely secondary to long-term tobacco use there were no acute findings. His troponin was negative. His EKG was nonischemic. While here on the monitor patient has not had any arrhythmia. We did check his orthostatics which were negative. Patient had reported me that he had some left-sided abdominal/flank pain. Given the syncope I obtained a chest x-ray, CT of the head as well as CT of the abdomen. CT of the head was negative for acute findings. Chest x-ray showed no acute cardio pulmonary findings. It should be noted that in 2020 he was noted to have a very large left pleural effusion which was drained in the emergency department. CT of the abdomen suggested possible colitis of the descending colon but an early diverticulitis was not ruled out. On reexam the patient had no elicited abdominal pain. Given the lack of leukocytosis and the presentation for syncope I do not believe he clinically has diverticulitis and have deferred antibiotics at this time. The etiology of the syncope is not clear. He does have a known pericardial effusion which on imaging appears smaller than it had in the past. But given the sudden syncope without cause we will admit the patient to the hospital for observation. He may benefit from an echo and telemetry monitoring overnight. I have discussed this case with Dr. Lopez who agrees to bring the patient in for further evaluation and management. I Spoke with patient who is also in agreement. Departure - Departure Disposition: ED Place in Observation Clinical Impression: Syncope and collapse, History of diabetes mellitus, type II, History of CAD (coronary artery disease) NIHSS - Time Time: 18:00 - Level of Consciousness Level of consciousness: (0) Alert, Keenly responsive LOC Questions: (0) Answers both Q's correct LOC Commands: (0) Performs both correctly - Gaze Best Gaze: (0) Normal - Visual Visual: (0) No loss - Facial Palsy Facial Palsy: (0) Normal, symmetrical movement - Motor Arms (both separate) Motor Arm (right): (0) No drift Motor Arm (left): (0) No drift - Motor Legs (both separate) Motor Leg (right): (0) No drift Motor Leg (left): (0) No drift - Limb Ataxia Limb Ataxia: (0) Absent - Sensory Sensory: (0) Normal - Best Language Best Language: (0) No aphasia - Dysarthria Dysarthria: (0) Normal - Extinction and Inattention (formally neg Extinction and inattention: (0) No abnormality - Total Score/Results Total Score/Result: 0
[2022-09-23 18:03] LABS: BASOPHILS % (AUTO) 0.8 %; EOSINOPHILS # (AUTO) 0.1 10^3/uL (0.0-0.7); EOSINOPHILS % (AUTO) 1.9 %; HCT - HEMATOCRIT 51.7 % (42.0-52.0); HGB - HEMOGLOBIN 17.2 g/dL (14.0-18.0); LYMPHOCYTES # (AUTO) 1.3 10^3/uL (1.5-3.5); LYMPHOCYTES % (AUTO) 24.6 %; MEAN CORPUSCULAR HEMOGLOBIN 29.2 pg (27.0-31.0); MEAN CORPUSCULAR HGB CONC 33.3 g/dL (32.0-36.0); MEAN CORPUSCULAR VOLUME 87.6 fL (80.0-94.0); MEAN PLATELET VOLUME 11.1 fL (7.4-11.4); MONOCYTES # (AUTO) 0.3 10^3/uL (0.0-1.0); MONOCYTES % (AUTO) 5.3 %; NEUTROPHILS # (AUTO) 3.4 10^3/uL (1.5-6.6); NEUTROPHILS % (AUTO) 66.6 %; PLT - PLATELET COUNT 162 10^3/uL (130-450); RED CELL DISTRIBUTION WIDTH 12.6 % (12.0-15.0); WHITE BLOOD COUNT 5.1 x10^3/uL (4.8-10.8)
[2022-09-23 18:09] LABS: KETONES, SERUM (ACETEST) NEGATIVE (NEGATIVE)
[2022-09-23 18:12] LABS: MUDS CUTOFF CONCENTRATIONS CUTOFF CONC BELOW:
[2022-09-23] MEDS ORDERED: DROPERIDOL 5 MG/2 ML VIAL IVP STA (18:16)
[2022-09-23 18:18] LABS: ALBUMIN 3.5 g/dL (3.2-5.5); ALBUMIN/GLOBULIN RATIO 0.9 (1.0-2.2); ALKALINE PHOSPHATASE 87 IU/L (42-121); ALT ALANINE AMINOTRANSFERASE 24 IU/L (10-60); AST ASPARTATE AMINOTRANSFERASE 36 IU/L (10-42); BILIRUBIN,TOTAL 0.9 mg/dL (0.2-1.0); BUN - BLOOD UREA NITROGEN 14 mg/dL (6-20); CALCIUM 8.9 mg/dL (8.5-10.3); CARBON DIOXIDE - CO2 28 mmol/L (21-32); CHLORIDE 102 mmol/L (101-111); CREATININE 1.1 mg/dL (0.6-1.2); ETOH - ETHANOL < 5.0 mg/dL; GFR - MDRD 67 (>89); GLUCOSE 230 mg/dL (70-100); LIPASE 28 U/L (22-51); POTASSIUM 3.4 mmol/L (3.5-5.0); SODIUM 139 mmol/L (135-145); TOTAL PROTEIN 7.2 g/dL (6.7-8.2)
[2022-09-23 18:25] LABS: AMPHETAMINE SCREEN,URINE NEGATIVE (NEGATIVE); BARBITURATE SCREEN,UR NEGATIVE (NEGATIVE); BENZODIAZEPINES SCREEN, URINE NEGATIVE (NEGATIVE); COCAINE SCREEN URINE NEGATIVE (NEGATIVE); METHADONE SCREEN, URINE NEGATIVE (NEGATIVE); METHAMPHETAMINES SCREEN, URINE NEGATIVE (NEGATIVE); OPIATE SCREEN, URINE NEGATIVE (NEGATIVE); OXYCODONE SCREEN, URINE NEGATIVE (NEGATIVE); PROPOXYPHENE SCREEN, URINE NEGATIVE (NEGATIVE); THC CANNABINOID SCREEN, URINE POSITIVE (NEGATIVE); TRICYCLIC ANTIDEPRESSANT,URINE NEGATIVE (NEGATIVE)
--- NOTE | 2022-09-23 19:02 | XRAY Report ---
PROCEDURE: Chest 1 View X-Ray INDICATIONS: Chest Pain TECHNIQUE: One view of the chest was acquired. COMPARISON: CT chest 06/06/2021 FINDINGS: Surgical changes and devices: Sternal wires are present. Lungs and pleura: No pleural effusions or pneumothorax. Lungs are clear. Unchanged left hemidiaph ragm elevation Mediastinum: Mediastinal contours appear normal. Heart size is normal. Bones and chest wall: No suspicious bony lesions. Overlying soft tissues appear unremarkable. IMPRESSION: No acute cardiopulmonary process. Reviewed by: Rosalee Sena MD on 09/23/2022 7:01 PM PDT Approved by: Rosalee Sena MD on 09/23/2022 7:01 PM PDT Station ID: [id number]
--- NOTE | 2022-09-23 19:03 | CT Report ---
PROCEDURE: HEAD WO INDICATIONS: syncope; ? seizure TECHNIQUE: Noncontrast 4.5 mm thick angled axial sections acquired from the foramen magnum to the vertex. For r adiation dose reduction, the following was used: automated exposure control, adjustment of mA and/or kV according to patient size. COMPARISON: MRI brain 09/16/2015. FINDINGS: Image quality: Excellent. CSF spaces: Basal cisterns are patent. No extra-axial fluid collections. Ventricles are normal in size and shape. Brain: No midline shift. No intracranial masses or hemorrhage. Hall-white matter interface is norm al. Skull and face: Calvarium and visualized facial bones are intact, without suspicious lesions. Sinuses: Visualized sinuses and mastoids are clear. IMPRESSION: 1. No acute intracranial process. Reviewed by: Rosalee Sena MD on 09/23/2022 7:01 PM PDT Approved by: Rosalee Sena MD on 09/23/2022 7:01 PM PDT Station ID: [id number]
--- NOTE | 2022-09-23 19:07 | CT Report ---
PROCEDURE: ABDOMEN/PELVIS W INDICATIONS: left flank pain, syncope, n/v CONTRAST: 100mL Omni 350 TECHNIQUE: After the administration of IV contrast, 5 mm thick sections acquired from the diaphragms to the symp hysis. 5 mm thick coronal and sagittal reformats were acquired. For radiation dose reduction, the f ollowing was used: automated exposure control, adjustment of mA and/or kV according to patient size. COMPARISON: CT chest 06/06/2021 FINDINGS: Image quality: Excellent. Lung bases and heart: Linear bibasilar opacities are present likely related to scarring versus atelec tasis. Heart is mildly enlarged. Previous pericardial effusion demonstrates significant interval impr ovement. There remains an anterior loculated fluid collection with mild compression along the right a trium. It is mildly decreased in size currently measuring 8.2 x 3.2 cm compared to 8.4 x 4.9 cm. Liver: Hepatic steatosis is present. Gallbladder and biliary tree: Questionable punctate stone within the dependent gallbladder lumen with out wall thickening. Spleen: No splenomegaly. Pancreas: No pancreatic ductal dilation. Adrenals: No adrenal nodule. Kidneys and ureters: No hydronephrosis. No renal cystic lesion which requires follow up. No solid mas s. Bowel and peritoneum: No bowel distension. No pathologic free fluid. There is a very minimal appearan ce of focal loop of descending colonic bowel wall thickening. Minimal scattered diverticula are prese nt. Lymph nodes: No central or retroperitoneal adenopathy. Vessels: No infrarenal aortic aneurysm. PELVIS Reproductive organs: Unremarkable. Bladder: No abnormal wall thickening, accounting for underdistension. Pelvic lymph nodes: No pelvic adenopathy by size criteria. Bones: No aggressive osseous abnormality. Other: No significant ventral or inguinal hernia. IMPRESSION: Focal loop of mild descending colonic bowel wall thickening. Focus of mild early colitis cannot be ex cluded, likely secondary to diverticulitis. Improved appearance appears identified pericardial effusion with persistent although decreased locula jonelle anterior fluid. Reviewed by: Rosalee Sena MD on 09/23/2022 7:06 PM PDT Approved by: Rosalee Sena MD on 09/23/2022 7:06 PM PDT Station ID: [id number]
[2022-09-23] MEDS ORDERED: HYDROcod/ACETAM 5/325 MG TABLET PO PRN (22:55)
[2022-09-23] MEDS ORDERED: ACETAMINOPHEN 325 MG TABLET PO PRN (22:55)
[2022-09-23] MEDS ORDERED: ONDANSETRON 4 MG/2 ML VIAL IVP PRN (22:55)
[2022-09-23] MEDS ORDERED: SODIUM CHLORIDE FLUSH 0.9% 10 ML SYRINGE IVP PRN (22:55)
[2022-09-23] MEDS ORDERED: NON FORMULARY MED (Atorvastatin Calcium [Lipitor] 80 MG Tablet) PO SCH (23:00)
--- NOTE | 2022-09-23 23:04 | HISTORY & PHYSICAL EXAMINATION ---
Chief Complaint - Chief Complaint Chief Complaint: Syncope History of Present Illness - Admitted From Admitted From:: Home - History Obtained From Records Reviewed: Yes History obtained from: ER MD and chart reviewed Exam Limitations: Televideo unable to work - History of Present Illness HPI Comment/Other: 67-year-old male was brought to the emergency department by EMS for evaluation of lapse in consciousness. Reportedly the patient was walking when he suddenly collapsed at home. His family went to him and found that he appeared to be cyanotic. The family also described what sounds like possible seizure activity on scene. They attempted to arouse the patient for for about 30 seconds before he become awake. When he did arouse he was found to be nonverbal and started to vomit. EMS arrived and found that he had a negative FAST exam. His blood glucose was 160. The patient does have a history of hypertension as well as three-vessel CABG. He denies taking any current medications because he states that he has no way to go to the store to fill them. He does smoke 1 pack/day of tobacco. Presentation in the emergency department he is alert with no focal deficits but actively vomiting. Patient is denying any chest pain or shortness of air. Denies abdominal pain just endorses nausea Patient discussed in detail with Dieudonne Fraser MD, ER team Patient denies any other episodes of syncope History - Past Medical History Cardiovascular: reports: Hypertension, Coronary artery disease, [place] Respiratory: reports: Shortness of breath, Sleep apnea Neuro: reports: Peripheral neuropathy Endocrine/Autoimmune: reports: Type 2 diabetes GI: reports: Ulcers : reports: None HEENT: reports: Chronic vision loss, Other Psych: reports: Depression Musculoskeletal: reports: None Derm: reports: None MRSA Hx?: No - Past Surgical History Cardiovascular: reports: CABG - POLST Patient has POLST: No Meds/Allgy - Home Medications Home Medications: Ambulatory Orders Medication Instructions Recorded Confirmed Losartan Potassium 50 mg PO DAILY #30 tablet 09/16/15 glyBURIDE [Diabeta] 5 mg PO DAILY #30 tablet 09/16/15 Acetaminophen [Pain Relief Extra 500 mg PO Q6HR PRN 04/24/21 04/24/21 Strength] Aspirin [Aspirin EC] 162 mg PO DAILY 04/24/21 04/24/21 Atorvastatin Calcium [Lipitor] 80 mg PO DAILY PM 04/24/21 04/24/21 Gabapentin [Neurontin] 100 mg PO TID 04/24/21 04/24/21 Insulin Glargine [Lantus Solostar] 28 units SQ DAILY 04/24/21 04/24/21 Sennosides/Docusate Sodium 1 each PO DAILY 04/24/21 04/24/21 [Senna-S Tablet] bisacodyL [Dulcolax] 5 mg PO DAILY PRN 04/24/21 04/24/21 metFORMIN [Glucophage] 1,000 mg PO BIDWM 04/24/21 04/24/21 oxyCODONE [Roxicodone] 2.5 - 10 mg PO Q4HR PRN 04/24/21 04/24/21 - Allergies Allergies/Adverse Reactions: Allergies Allergy/AdvReac Type Severity Reaction Status Date / Time No Known Drug Allergies Allergy Verified 06/06/21 13:13 Review of Systems - Other Findings Other Findings: 14 system review done and as per HPI Prior Level of Functionality: Independent with ADL Exam - Vital Signs Vital Signs: Vital Signs x48h Temp Pulse Pulse Pulse Pulse Resp BP 09/23/22 21:25 20 09/23/22 18:03 84 94 90 09/23/22 17:48 36.9 C 90 18 159/109 H BP BP BP Pulse Ox 09/23/22 21:25 09/23/22 18:03 141/99 H 204/166 H 140/105 H 09/23/22 17:48 98 - Physical Exam General Appearance: positive: No acute distress, Alert Eyes Bilateral: positive: Normal inspection ENT: positive: ENT inspection nml Neck: positive: Thyroid nml, No JVD Respiratory: positive: No respiratory distress Cardiovascular: positive: Regular rate & rhythm Abdomen: positive: Non-tender Back: positive: Nml inspection Skin: positive: Color nml, No rash Extremities: positive: Non-tender, Full ROM Neurologic/Psychiatric: positive: Oriented x3, CN's nml (2-12), Motor nml Conclusion/Plan - Problem List (1) History of CAD (coronary artery disease) Conclusion/Plan: Hx of CAG no acute ST changes on EKG Continue ASA and Statin BP meds to be addied as clinically indicated (2) History of diabetes mellitus, type II Conclusion/Plan: Metformin and Glipidize Check A1c Statin May need insulin (3) Syncope and collapse Conclusion/Plan: ? Neuro vs CArdiac vs Vasovagl All work up so far unremarakble Check echo Carotid ultrasound playground monitor ASa 81 mg and statin Replace kcl - Lab Results Fish Bones: 09/23/22 17:57 09/23/22 17:57 - EKG Results EKG Comparison: Unchanged from prior EKG
[2022-09-24] MEDS: GABAPENTIN 100 MG CAPSULE PO SCH ×3 (00:50→14:22)
[2022-09-24] MEDS: SODIUM CHLORIDE 0.9% 1,000 ML IV SCH ×3 (00:50→20:32)
[2022-09-24] MEDS: SODIUM CHLORIDE FLUSH 0.9% 10 ML SYRINGE IVP SCH ×4 (00:51→20:32)
[2022-09-24] MEDS ORDERED: ZINC OXIDE 20% OINT 30 GM TUBE TOP PRN (04:11)
[2022-09-24] MEDS ORDERED: metFORMIN 500 MG TABLET PO SCH (08:00)
[2022-09-24] MEDS: DOCUSATE SODIUM 100 MG CAPSULE PO SCH (08:40)
[2022-09-24] MEDS: SENNA 8.6 MG TABLET PO SCH (08:40)
[2022-09-24] MEDS ORDERED: glyBURIDE 2.5 MG TABLET PO SCH (09:00)
[2022-09-24] MEDS ORDERED: LOSARTAN 50 MG TABLET PO SCH (09:00)
[2022-09-24] MEDS ORDERED: ASPIRIN EC 81 MG TABLET PO SCH (09:00)
[2022-09-24 10:18] LABS: ESTIMATED AVERAGE GLUCOSE 206 mg/dL (70-100); HEMOGLOBIN A1c% 8.8 % (4.27-6.07)
--- NOTE | 2022-09-24 11:37 | PHARMACY PROGRESS NOTE ---
- Best Possible Medication History Admit Date and Time: 09/23/22 8660 Processed by: Pharmacy Medication History completed: Yes Patient Interview: Completed Secondary Source(s): Insurance records (Medrec done by pharmacy [facility], who spoke with pt and pt confirms he has not taken anything for a long time. Therefore, we will update medlist to have nothing from home. ) As the person ultimately responsible for medication therapy, providers are able to order a medication from an existing home medication list in [facility] via the "Reconcile Routine" prior to Confirmation of that medication by arch support maker. Such practice is discouraged except when the physician, in their clinical judgment, deems that a medical need exists for a medication without regard to previous use.
[2022-09-24] MEDS: INSULIN LISPRO 300 UNIT/3 ML PEN SUBQ SCH ×3 (12:00→20:40)
--- NOTE | 2022-09-24 13:15 | Ultrasound Report ---
PROCEDURE: Carotid Doppler Complete INDICATIONS: Syncope TECHNIQUE: Color and pulse Doppler interrogation was performed of both carotid systems, with image documentation and velocity measurements. COMPARISON: None. FINDINGS: Right side: Brachial blood pressure: 124/81 mm Hg. Common carotid artery peak systolic velocity: 62.7 cm/sec. Internal carotid artery peak systolic velocity: 99.7 cm/sec. Internal carotid artery end diastolic velocity: 30.3 cm/sec. External carotid artery peak systolic velocity: 72.9 cm/sec. ICA/CCA peak systolic ratio: 1.6 . Hall scale imaging description: Mild atherosclerotic plaques are noted involving distal common carot id artery and origin of internal carotid artery. Percent internal carotid artery stenosis: Less than 50%. Vertebral artery: Flow direction is antegrade. Left side: Brachial blood pressure: 116/74 mm Hg. Common carotid artery peak systolic velocity: 67.9 cm/sec. Internal carotid artery peak systolic velocity: 77.2 cm/sec. Internal carotid artery end diastolic velocity: 30.6 cm/sec. External carotid artery peak systolic velocity: 66 cm/sec. ICA/CCA peak systolic ratio: 1.1 . Hall scale imaging description: Mild atherosclerotic plaques are noted in distal common carotid arter y and origin of internal carotid artery. Percent internal carotid artery stenosis: Less than 50% Vertebral artery: Flow direction is antegrade. IMPRESSION: 1. In the right internal carotid artery, there is less than 50% stenosis based on peak systolic veloc ity criteria. 2. In the left internal carotid artery, there is less than 50% stenosis based on peak systolic veloci ty criteria. 3. Antegrade blood flow within the right vertebral artery. 4. Antegrade blood flow within the left vertebral artery. The estimate of stenosis included in the report of the imaging study was calculated using the [facility]-end orsed standards of carotid artery stenosis. Reviewed by: Joseph Yoder MD on 09/24/2022 1:14 PM PDT Approved by: Joseph Yoder MD on 09/24/2022 1:14 PM PDT Station ID: [id number]
--- NOTE | 2022-09-24 13:34 | PROVIDER PROGRESS NOTE ---
Hospitalist Cross-cover Note - Cross-Cover Note Cross-Cover Note: ECHOCARDIOGRAPHY REPORT 09/24/2022 As a Board-certified Lead Maintenance Technician, credentialed to do and interpret Echoes I performed a complete Echo and Doppler exam on this patient at bedside. Indication: Syncope, history of VA and CABG Image quality: Fair, he has a horizontally positioned heart, so poor apical views Summary: Left atrium mildly enlarged. Right atrium never well seen. Normal aortic root diameter Normal left ventricular size and wall thickness. Thinned and akinetic basal septum and proximal inferior wall, other wall motion normal, LVEF 50 to 55%. Doppler shows grade 1 LV diastolic dysfunction is present Right ventricle probably normal in size, cannot visualize RV contractility Mitral, tricuspid and aortic valves appear structurally normal. Pulmonic valve poorly seen Doppler exam shows trace mitral regurgitation, trace tricuspid regurgitation and trace aortic regurgitation. Pulmonic valve could not be interrogated by Doppler since it was not seen No pericardial effusion. 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 Gastric bubble seen in thorax.
--- NOTE | 2022-09-24 13:37 | PROVIDER PROGRESS NOTE ---
Assessment/Plan - Problem List (1) Syncope and collapse Assessment/Plan: The patient gave me his version of the story today: He was walking from one room to another and then suddenly fell in the hallway, he had no prodrome of dizziness. The next thing he remembers is being on the floor with attendance around him. The girlfriend in the room reports that when he fell he landed on his right side and the girlfriend's son was in the house and the son then was trying to pat the pt on the back to get him to breathe, then laid the patient's supine and did several CPR pumps on his sternum. By the time EMS arrived the patient was awake, so none of this was reported on the ambulance run sheet. Orthostatic vital signs were ordered to be done today, none were done yesterday. Today he has a supine BP of 113//74, HR 96 and sitting BP 99/73 with heart rate of 100. Patient did complain of lightheadedness. I asked the patient if it is true that he is taking no medicines for about a year and he confirms this. When asked why, he told me he does not know. The girlfriend is in the room and confirms that he simply refuses to take them or promises that he will but never does. He has not checked his sugar in a year. He does not take any diabetic meds. He is not on a diabetic diet. (His glucose at the time of EMS was 160). Earlier he had told nursing that the reason he took no meds is that he "has nobody to pick them up". I confirmed that the patient no longer drives a car and neither does his girlfriend, but there is a brother nearby that does drive them to different places like grocery shopping however. Plan: Remain on telemetry, monitoring for arrhythmias. Continue to check orthostatic vital signs. Give IV fluids for his abnormal orthostasis found today Obtain an Echocardiogram (however today is Tuesday and we have no hvac operations technician here until Tuesday). If this patient has an EF below 40% and had syncope requiring CPR, I will be discussing a defibrillator with him and his family. Await carotid Doppler results (2) Orthostatic hypotension Assessment/Plan: The patient is complaining of thirst and he has orthostatic vital signs. He does not have prerenal azotemia on labs (all labs were reviewed). He has not had a recent fever or any volume loss with vomiting or with diarrhea, so unclear why he is dehydrated. Plan: Continue with IV fluids at 100 cc/h Follow orthostatic vital signs (3) DM type 2 (diabetes mellitus, type 2) Assessment/Plan: Patient cannot remember what medications he was on. Old records show he used to take insulin plus oral agents. Med list reconciled by pharmacy shows he has not picked up any meds whatsoever in 1 year Plan: We will order a diabetic diet, hypoglycemia protocol, fingerstick glucose checks and we will check his A1c I will likely start him on metformin twice daily at the time of discharge. The importance of glucose control to prevent cardiovascular complications was discussed in the room to the patient and the girlfriend and niece were in the room and supported me, that he need to be compliant with meds. 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 He never went to a research greenhouse supervisor after that. His resting EKG does show inferior Q waves consistent with old inferior NJ I performed a bedside echo on this patient today (since we have no traffic engineering technician here until Tuesday and today is Tuesday) this showed LVEF of 50% with mild diastolic dysfunction, posterior scar. Plan: I stressed the importance of why he should at least be on 1 baby aspirin daily lifelong and girlfriend and his niece were in the room and agreed he should be compliant with meds I will also put him on low-dose of beta-edgardo post NJ (5) Noncompliance with medication regimen Assessment/Plan: The patient admits he has not seen a provider in 2 years. His girlfriend in the bedroom confirms this. Our pharmacy confirmed that he has not picked up any medications for 1 year exactly. The patient and girlfriend confirm this I discussed with the patient what his wishes are and reviewed that he is at a higher risk of early from untreated diabetes and not being on prevention meds post NJ. The patient said today that he would agree to go back on medications Plan: The girlfriend said she would continue to promote medication compliance with the patient Patient needs to be established with a new PCP, he had Dr. Behzad Guardado before but Dr Guardado's office does not take this patient's insurance (6) Tobacco use Assessment/Plan: Patient smokes 1 PPD. Girlfriend gave me details that all he does is sleep, wakes up to eat, then goes outside and sits and smokes or naps. Plan: Smoking cessation was discussed with the patient, with girlfriend and niece in the room. - Current Meds Current Meds: Current Medications Generic Name Dose Route Start Last Admin Trade Name Eric PRN Reason Stop Dose Admin Aspirin 162 mg 09/24/22 09:00 09/24/22 08:40 Aspirin Ec 81 Mg Tablet PO 162 mg DAILY ELDER Administration Docusate Sodium 100 mg 09/24/22 09:00 09/24/22 08:40 Docusate Sodium 100 Mg Capsule PO 100 mg DAILY ELDER Administration Gabapentin 100 mg 09/23/22 23:00 09/24/22 06:07 Gabapentin 100 Mg Capsule PO 100 mg TID ELDER Administration Sodium Chloride 1,000 mls @ 100 mls/hr 09/23/22 23:00 09/24/22 10:16 Normal Saline 0.9% IV 100 mls/hr .Q10H ELDER Administration Insulin Human Lispro 1 - 5 unit 09/24/22 12:00 09/24/22 12:00 Insulin Lispro 300 Unit/3 Ml Pen SUBQ 2 unit 0800,1200,1700,2100 ELDER Administration Protocol Senna 8.6 mg 09/24/22 09:00 09/24/22 08:40 Senna 8.6 Mg Tablet PO 8.6 mg DAILY ELDER Administration Sodium Chloride 10 ml 09/24/22 01:00 09/24/22 09:41 Sodium Chloride Flush 0.9% 10 Ml Syringe IVP Not Given 0100,0900,1700 ELDER - Lab Result Fish Bone Diagrams: 09/23/22 17:57 09/23/22 17:57 - Diagnostic Imaging Results Diagnostic Imaging Results: Final report reviewed - Additional Planning My Orders: My Active Orders 09/24/22 Evaluate and Treat OT [OT] Routine Evaluate and Treat PT [PT] Routine 09/24/22 07:45 Orthostatic [Vital Signs - Orthostatic] [RC] QSHIFT 09/24/22 09:04 Blood Glucose Checks - Eating [RC] 0800,1200,1700,2100 Initiate Hypoglycemia Protocol [RC] .protocol 09/24/22 09:10 UA w/ MICROSCOPIC, CULT IF [URIN] Stat 09/24/22 12:00 Insulin Lispro [Humalog Kwikpen U-100] 1 - 5 unit SUBQ 0800,1200,1700,2100 Subjective - Subjective Patient Reports: Feeling Better (There is been no further syncope since admissi on) Objective Vital Signs: Vital Signs - 24 hr 09/23/22 09/23/22 09/23/22 17:48 18:03 21:25 Temperature 36.9 C Heart Rate 90 Heart Rate [ Brachial] Heart Rate [ 84 Sitting] Heart Rate [ 94 Standing] Heart Rate [ 90 Supine] Respiratory 18 20 Rate Blood Pressure 159/109 H Blood Pressure [Left Brachial artery] Blood Pressure [Right Brachial artery] Blood Pressure 141/99 H [Sitting] Blood Pressure 204/166 H [Standing] Blood Pressure 140/105 H [Supine] O2 Saturation 98 09/23/22 09/24/22 09/24/22 23:00 00:36 05:00 Temperature 36.5 C 36.4 C L Heart Rate 95 Heart Rate [ 96 83 Brachial] Heart Rate [ Sitting] Heart Rate [ Standing] Heart Rate [ Supine] Respiratory 16 18 16 Rate Blood Pressure 104/77 Blood Pressure 146/97 H [Left Brachial artery] Blood Pressure 114/80 [Right Brachial artery] Blood Pressure [Sitting] Blood Pressure [Standing] Blood Pressure [Supine] O2 Saturation 93 92 95 09/24/22 08:05 Temperature 36.7 C Heart Rate Heart Rate [ 87 Brachial] Heart Rate [ Sitting] Heart Rate [ Standing] Heart Rate [ Supine] Respiratory 18 Rate Blood Pressure Blood Pressure [Left Brachial artery] Blood Pressure 136/86 H [Right Brachial artery] Blood Pressure [Sitting] Blood Pressure [Standing] Blood Pressure [Supine] O2 Saturation 97 Oxygen O2 Source Room air I&O (Last 24 Hrs): Intake and Output Totals x24h 09/22/22 09/23/22 09/24/22 23:59 23:59 23:59 Intake Total 1000.0 1823.333 Balance 1000.0 1823.333 General: Alert, Oriented x3 HEENT: Mucous membr. moist/pink, Other (Right forehead ecchymosis) Neck: Supple, No JVD Neuro: Alert, Non Focal Cardiovascular: Regular rate, No murmurs Respiratory: No respiratory distress, Breath sounds nml Abdomen: Normal bowel sounds, Soft, No tenderness Extremities: No clubbing, No edema, No tenderness/swelling Skin: No rashes - Results Results: Laboratory Results WBC 5.1 x10^3/uL (4.8-10.8) 09/23/22 17:57 RBC 5.90 10^6/uL (4.70-6.10) 09/23/22 17:57 Hgb 17.2 g/dL (14.0-18.0) 09/23/22 17:57 Hct 51.7 % (42.0-52.0) 09/23/22 17:57 MCV 87.6 fL (80.0-94.0) 09/23/22 17:57 MCH 29.2 pg (27.0-31.0) 09/23/22 17:57 MCHC 33.3 g/dL (32.0-36.0) 09/23/22 17:57 RDW 12.6 % (12.0-15.0) 09/23/22 17:57 Plt Count 162 10^3/uL (130-450) 09/23/22 17:57 MPV 11.1 fL (7.4-11.4) 09/23/22 17:57 Neut # (Auto) 3.4 10^3/uL (1.5-6.6) 09/23/22 17:57 Lymph # (Auto) 1.3 10^3/uL (1.5-3.5) L 09/23/22 17:57 Borden # (Auto) 0.3 10^3/uL (0.0-1.0) 09/23/22 17:57 Eos # (Auto) 0.1 10^3/uL (0.0-0.7) 09/23/22 17:57 Baso # (Auto) 0.0 10^3/uL (0.0-0.1) 09/23/22 17:57 Absolute Nucleated RBC 0.00 x10^3/uL 09/23/22 17:57 Nucleated RBC % 0.0 /100WBC 09/23/22 17:57 Sodium 139 mmol/L (135-145) 09/23/22 17:57 Potassium 3.4 mmol/L (3.5-5.0) L 09/23/22 17:57 Chloride 102 mmol/L (101-111) 09/23/22 17:57 Carbon Dioxide 28 mmol/L (21-32) 09/23/22 17:57 Anion Gap 9.0 (6-13) 09/23/22 17:57 BUN 14 mg/dL (6-20) 09/23/22 17:57 Creatinine 1.1 mg/dL (0.6-1.2) 09/23/22 17:57 Estimated GFR (MDRD) 67 (>89) L 09/23/22 17:57 Glucose 230 mg/dL (70-100) H 09/23/22 17:57 POC Whole Bld Glucose 192 mg/dL (70 - 100) H 09/24/22 11:40 Estimat Average Glucose 206 mg/dL (70-100) H 09/24/22 09:26 Hemoglobin A1c % 8.8 % (4.27-6.07) H 09/24/22 09:26 Calcium 8.9 mg/dL (8.5-10.3) 09/23/22 17:57 Total Bilirubin 0.9 mg/dL (0.2-1.0) 09/23/22 17:57 AST 36 IU/L (10-42) 09/23/22 17:57 ALT 24 IU/L (10-60) 09/23/22 17:57 Alkaline Phosphatase 87 IU/L (42-121) 09/23/22 17:57 Troponin I High Sens 10.1 ng/L (2.3-19.7) 09/23/22 17:57 Total Protein 7.2 g/dL (6.7-8.2) 09/23/22 17:57 Albumin 3.5 g/dL (3.2-5.5) 09/23/22 17:57 Globulin 3.7 g/dL (2.1-4.2) 09/23/22 17:57 Albumin/Globulin Ratio 0.9 (1.0-2.2) L 09/23/22 17:57 Lipase 28 U/L (22-51) 09/23/22 17:57 Urine Opiates Screen NEGATIVE (NEGATIVE) 09/23/22 18:11 Ur Oxycodone Screen NEGATIVE (NEGATIVE) 09/23/22 18:11 Urine Methadone Screen NEGATIVE (NEGATIVE) 09/23/22 18:11 Ur Propoxyphene Screen NEGATIVE (NEGATIVE) 09/23/22 18:11 Ur Barbiturates Screen NEGATIVE (NEGATIVE) 09/23/22 18:11 Ur Tricyclics Screen NEGATIVE (NEGATIVE) 09/23/22 18:11 Ur Phencyclidine Scrn NEGATIVE (NEGATIVE) 09/23/22 18:11 Ur Amphetamine Screen NEGATIVE (NEGATIVE) 09/23/22 18:11 U Methamphetamines Scrn NEGATIVE (NEGATIVE) 09/23/22 18:11 U Benzodiazepines Scrn NEGATIVE (NEGATIVE) 09/23/22 18:11 Urine Cocaine Screen NEGATIVE (NEGATIVE) 09/23/22 18:11 U Cannabinoids Screen POSITIVE (NEGATIVE) H 09/23/22 18:11 Ethyl Alcohol < 5.0 mg/dL 09/23/22 17:57 Serum Ketones NEGATIVE (NEGATIVE) 09/23/22 17:57
[2022-09-24] MEDS: metFORMIN 500 MG TABLET PO SCH (17:20)
[2022-09-24] MEDS ORDERED: ATORVASTATIN 40 MG TABLET PO SCH (21:00)
[2022-09-24 22:43] LABS: BILIRUBIN,URINE NEGATIVE (NEGATIVE); GLUCOSE, URINE (UA) 250 mg/dL (NEGATIVE); KETONES,URINE (UA) NEGATIVE (NEGATIVE); LEUKOCYTE ESTERASE, URINE NEGATIVE (NEGATIVE); NITRITE,URINE NEGATIVE (NEGATIVE); OCCULT BLOOD,URINE SMALL (NEGATIVE); PROTEIN,URINE 100 mg/dL (NEGATIVE); UROBILINOGEN,URINE 1 (NORMAL) E.U./dL (NORMAL)
[2022-09-24 22:47] LABS: CLARITY,URINE CLEAR (CLEAR)
[2022-09-24 22:55] LABS: BACTERIA,URINE None Seen /HPF (None Seen); RBC,URINE 0-5 /HPF (0-5); SQUAMOUS EPITHELIAL CELL,UR RARE Squamous (<= Few); WBC,URINE 0-3 /HPF (0-3)
[2022-09-25] MEDS ORDERED: MORPHINE 10 MG/ML VIAL IVP ONE (02:42)
[2022-09-25] MEDS ORDERED: MORPHINE 2 MG/ML CARPUJECT IVP ONE (03:10)
[2022-09-25 05:16] LABS: BUN - BLOOD UREA NITROGEN 14 mg/dL (6-20); CALCIUM 8.4 mg/dL (8.5-10.3); CARBON DIOXIDE - CO2 28 mmol/L (21-32); CHLORIDE 105 mmol/L (101-111); CHOL/HDL RATIO 5.9 (<5.0); CHOLESTEROL 170 mg/dL; CREATININE 0.9 mg/dL (0.6-1.2); GFR - MDRD 84 (>89); GLUCOSE 139 mg/dL (70-100); HDL CHOLESTEROL 29 mg/dL; LDL CHOLESTEROL,CALCULATED 115 mg/dL; MAGNESIUM 1.4 mg/dL (1.7-2.8); POTASSIUM 3.6 mmol/L (3.5-5.0); SODIUM 139 mmol/L (135-145); TRIGLYCERIDES 132 mg/dL; VLDL CHOLESTEROL 26 mg/dL
[2022-09-25] MEDS: SODIUM CHLORIDE 0.9% 1,000 ML IV SCH (06:55)
--- NOTE | 2022-09-25 08:28 | Discharge Plan ---
Discharge Plan Problem Reviewed?: Yes Disposition: Home, Self Care Condition: Fair Prescriptions: metFORMIN [Glucophage] 500 mg PO BIDWM #60 tab Atorvastatin [Lipitor] 10 mg PO QPM #30 tablet Aspirin [Troup Aspirin] 81 mg PO DAILY #30 ea Metoprolol Succinate [Toprol Xl] 12.5 mg PO DAILY #15 tab Diet: Diabetic Activity Restrictions: Activity as Tolerated Shower Restrictions: No Instruction Topics: Diabetic Retinopathy Evaluate Eyes, Diabetes Heart Disease, Diabetes Skilled Nursing Complications Health Concerns: You were hospitalized after you fainted. The cause of your fainting appears to be that you were very dehydrated. You received 2 days of IV fluids. Today you are being discharged home. You need to stay better hydrated, especially with the warm summer months ahead of us. You admitted that you not taking any medications whatsoever, none for your heart after having a heart attack and bypass surgery, and none for your diabetes. New prescriptions have been ordered for you to now take: 3 medications for your heart (daily baby aspirin, Toprol to prevent a second heart attack, and Lipitor to decrease your cholesterol which is elevated and could lead to another heart attack). If you only take these for the 1 month supply that has been ordered, that is not enough. You need to restart seeing a medical provider and have r efills for these medicines and continue to keep taking them. One of the new prescriptions is for a Diabetic medication to take twice a day. You need to restart seeing a primary care provider and get a referral to an eye doctor, since you said your vision is bad, because you are probably getting eye damage related to poorly controlled diabetes. You need to follow a good diabetic diet also. If you want, you may come to the diabetic education classes right here in the [facility] clinic. All new prescriptions were electronically sent to your [facility] pharmacy in [place]. If you choose not to properly manage your heart disease and your diabetes, and if you choose not to eat a good diet and take proper medications, you WILL have further medical problems, and you could a premature . Plan of Treatment: As above. Also, please decrease and stop smoking cigarettes, since that is also harming your heart and your lungs. Care Goals: Improvement in symptoms and stabilization are the goals. Assessment: These handouts and instructions are given to you as a reminders. Additional Instructions or Follow Up instructions: Please go to the [facility] in [place] for a hospital follow-up appointment in the next 1 to 2 weeks, and they will get you established with a Primary Care Provider going forward. Follow-Up Care: [facility] - Diabetes Ed No Smoking: If you smoke, Please STOP! Call for help.
[2022-09-25] MEDS: SENNA 8.6 MG TABLET PO SCH (08:33)
[2022-09-25] MEDS: DOCUSATE SODIUM 100 MG CAPSULE PO SCH (08:33)
[2022-09-25] MEDS: metFORMIN 500 MG TABLET PO SCH (08:33)
[2022-09-25] MEDS: SODIUM CHLORIDE FLUSH 0.9% 10 ML SYRINGE IVP SCH (08:33)
[2022-09-25] MEDS: INSULIN LISPRO 300 UNIT/3 ML PEN SUBQ SCH (08:34)
[2022-09-25] MEDS ORDERED: ASPIRIN EC 81 MG TABLET PO SCH (09:00)
[2022-09-25] MEDS ORDERED: METOPROLOL SUCCINATE 25 MG TABLET PO SCH (09:00)
--- NOTE | 2022-09-25 11:03 | DISCHARGE SUMMARY ---
Discharge Summary Admit Date: 09/23/22 Discharge Date: 09/25/22 Discharging Provider: Dr Karely Osorio Primary Care Provider: None Code Status: Attempt Resuscitation Condition at Discharge: Fair Discharge Disposition: 01 Home, Self Care - HPI History of Present Illness: 67-year-old male was brought to the emergency department by EMS for evaluation of lapse in consciousness. Reportedly the patient was walking when he suddenly collapsed at home. His family went to him and found that he appeared to be cyanotic. The family also described what sounds like possible seizure activity on scene. They attempted to arouse the patient for for about 30 seconds before he become awake. When he did arouse he was found to be nonverbal and started to vomit. EMS arrived and found that he had a negative FAST exam. His blood glucose was 160. The patient does have a history of hypertension as well as three-vessel CABG. He denies taking any current medications whatsoever, because he states that he has no way to go to the store to fill them. He does smoke 1 pack/day of tobacco. He lives with his girlfriend and no longer drives. Presentation in the emergency department he is alert with no focal deficits but actively vomiting. Patient is denying any chest pain or shortness of air. Denies abdominal pain just endorses nausea. Patient discussed in detail with FREDRICK Walters, on ER team. Patient denies any other episodes of syncope. Patient to be placed in Observation - CONSULTS | PROCEDURES Procedures: ECHOCARDIOGRAPHY REPORT 09/24/2022 As a Board-certified Plant Operator/Shift Supervisor, credentialed to do and interpret Echoes, I performed a complete Echo and Doppler exam on this patient at bedside. Indication: Syncope, history of GA and CABG Image quality: Fair, he has a horizontally positioned heart, so poor apical views Summary: Left atrium mildly enlarged. Right atrium never well seen. Normal aortic root diameter Normal left ventricular size and wall thickness. Thinned and akinetic basal septum and proximal inferior wall, other wall motion normal, LVEF 50 to 55%. Doppler shows grade 1 LV diastolic dysfunction is present Right ventricle probably normal in size, cannot visualize RV contractility Mitral, tricuspid and aortic valves appear structurally normal. Pulmonic valve poorly seen Doppler exam shows trace mitral regurgitation, trace tricuspid regurgitation and trace aortic regurgitation. Pulmonic valve could not be interrogated by Doppler since it was not seen No pericardial effusion. There is a large gastric air bubble anterior to the RV within the chest Conclusion: Evidence of old posterior GA, LVEF 50 to 55%, mild diastolic dysfunction present Cannot visualize RV function Trace MR, TR and AI. Gastric bubble seen in thorax. - HOSPITAL COURSE Hospital Course: (1) Syncope and collapse The patient gave me his version of the story: He was walking from one room to another and then suddenly fell in the hallway, he had no prodrome of dizziness. The next thing he remembers is being on the floor with attendants around him. The girlfriend reported that when he fell he landed on his right side and the girlfriend's son was in the house and the son then was trying to pat the patient on the back "to get him to breathe", then laid the patient's supine and did several CPR pumps on his chest. By the time EMS arrived, the patient was awake, so none of this was reported on the ambulance run sheet. Orthostatic vital signs were ordered to be done here and showed a supine BP of 113//74, HR 96 and sitting BP 99/73 with heart rate of 100, and patient did complain of lightheadedness. He was put on saline iv hydration. Troponins rued h im out for an GA and there were no arrhytmias on telemetry. He was orthostatic, so he received iv IV fluids. If this patient had an EF below 40%, and had syncope truly requiring CPR, I would have discussed a defibrillator with him and his family. I performed a bedside Echo on this patient (since we have no staging technician here until Tuesday, and he was here Tue and Sat). His Echo showed LVEF of 50% with mild diastolic dysfunction, and he has akinesis of the posterior LV. Carotid Doppler showed <50% plaques. (2) Orthostatic hypotension The patient was complaining of thirst and he had orthostatic vital signs. He did not have prerenal azotemia on labs. He did not had a recent fever or any volume loss from vomiting or with diarrhea, so unclear why he was dehydrated. He rec eived IV fluids at 100 cc/h. This was felt to be the most likely cause of his syncope. (3) DM type 2 (diabetes mellitus, type 2) Patient cannot remember what medications he used to be on. Old records show he used to take insulin plus oral agents. His med list reconciled by pharmacy shows he has not picked up any meds whatsoever in 1 year. His glucose at the time of EMS visit was 160. His A1c resut was 8.8. He was placed on a diabetic diet, and sliding scale insulin coverage while here, and he was discharged on Metformin. (4) Old GA (myocardial infarction) Patient reports having an GA followed by four-vessel bypass surgery done about 2-1/2 years ago. He never went to a asphalt plant laborer after that. His resting EKG does show inferior Q waves consistent with old inferior GA. I performed a bedside Echo on this patient (since we have no staging technician here until Tuesday and he was here Tue and Sat), and his Echo showed LVEF of 50% with mild diastolic dysfunction, and he has a posterior LV scar. I stressed the importance of why he should be on 1 baby aspirin daily and B-edgardo lifelong, and his girlfriend and his niece were in the room and heard him respond he would be compliant with meds. His fasting lipid panel showed an LDL of 115 (target is <70 post-GA and for Diabetics). He was sent home on aspirin, Toprol and Lipitor. (5) Noncompliance with medication regimen The patient admitted that he has not seen a provider in 2 years. His girlfriend confirmed this. Our pharmacy determined that he has not picked up any medications for 1 year. The patient and girlfriend confirmed this. When asked why, he told me he does not know. The girlfriend in the room confirmed that he simply refuses to take them or promises that he will, but never does. He has not checked his sugar in a year. He does not take any diabetic meds. He is not on a diabetic diet. (His glucose at the time of EMS visit was 160). At [facility], he said that the reason he took no meds is that he "has nobody to pick them up". I confirmed that the patient no longer drives a car and neither does his girlfriend, but there is a brother that does drive them to different places like grocery shopping, so he can get meds. I discussed with the patient that he is at a higher risk of early from untreated diabetes and not being on prevention meds post GA. The patient said that he would go back on medications. The girlfriend said she would continue to promote medication compliance with the patient. Patient needs to be re-establish with a new PCP; he had Dr. Behzad Guardado, but Dr Guardado's office does not take this patient's insurance. (6) Tobacco use Patient smokes 1 PPD. Girlfriend gave me details that all he does is sleep, wakes up to eat, then goes outside and sits and smokes, or naps. Smoking cessation was discussed with the patient, with girlfriend and niece in the room. (7) Back pain This patient had sharp, brief pain in his L flank area. He was probably passing a stone. Straining all urine was ordered, but we saw no stone while he was here. - ALLERGIES Allergies/Adverse Reactions: Allergies Allergy/AdvReac Type Severity Reaction Status Date / Time No Known Drug Allergies Allergy Verified 06/06/21 13:13 - MEDICATIONS Home Medications: Ambulatory Orders Medication Instructions Recorded Confirmed Aspirin [Lynn Aspirin] 81 mg PO DAILY #30 ea 09/25/22 Atorvastatin [Lipitor] 10 mg PO QPM #30 tablet 09/25/22 Metoprolol Succinate [Toprol Xl] 12.5 mg PO DAILY #15 tab 09/25/22 Zinc Oxide 20% Oint [Zinc Oxide] 1 applic TOP PRN PRN each 09/25/22 metFORMIN [Glucophage] 500 mg PO BIDWM #60 tab 09/25/22 - PHYSICAL EXAM AT DISCHARGE General Appearance: positive: No acute distress, Alert, Other (Male pattern baldness) Eyes Bilateral: positive: Normal inspection, EOMI ENT: positive: ENT inspection nml, No signs of dehydration Neck: positive: Nml inspection, No JVD Respiratory: positive: No respiratory distress, Breath sounds nml Cardiovascular: positive: Regular rate & rhythm, No murmur Abdomen: positive: Non-tender, Nml bowel sounds, No distention Back: positive: Other (No CVA tenderness at time of discharge.) Skin: positive: Warm, Dry Extremities: positive: Non-tender, No pedal edema Neurologic/Psychiatric: positive: Oriented x3, Motor nml - LABS Result Diagrams: 09/23/22 17:57 09/25/22 04:44 - DIAGNOSTIC IMAGING Diagnostic Imaging Results: Final report reviewed - FOLLOW UP Follow Up: Stressed importance to establish with a PCP. - TIME SPENT Time Spent in Discharge (Minutes): 45
[2022-09-25 13:00] VITALS: BP 145/84
== END 2022-09-25 13:06 | disposition home or self-care (01) ==
LOC: EDUNIT# → ED 17:38 → MS2 22:55
PROVIDERS: ADMIT Internal Medicine; ATTEND Internal Medicine
DX: I95.1 Orthostatic hypotension (principal); E11.9 Type 2 diabetes mellitus without complications; I25.2 Old myocardial infarction; Z95.1 Presence of aortocoronary bypass graft; Z91.128 Patient's intentional underdosing of medication regimen for other reason; F17.210 Nicotine dependence, cigarettes, uncomplicated; M54.9 Dorsalgia, unspecified; E86.0 Dehydration; I10 Essential (primary) hypertension; I25.10 Atherosclerotic heart disease of native coronary artery without angina pectoris; G47.30 Sleep apnea, unspecified; W18.30XA Fall on same level, unspecified, initial encounter; E78.00 Pure hypercholesterolemia, unspecified
CPT/HCPCS: 36415; 70450; 71045; 74177; 80048; 80053; 80061; 80306; 81001; 82009; 83036; 83690; 83735; 84443; 84484; 85025; 93005; 93880; 96374; 96375; 97116; 97161; 97165; 99285; 99406; A9270; G0378; G0480; Q9967; 80320; 83721; 87086

== ENCOUNTER 2023-08-22 21:03 | Outpatient (CLI) | payer MEDICARE, MEDICAID | END 2023-08-22 23:59 | disposition critical access hospital (66) | LOC: EMS 21:03 | DX: R53.1 Weakness (principal); E11.65 Type 2 diabetes mellitus with hyperglycemia; R07.89 Other chest pain; W18.39XA Other fall on same level, initial encounter; Y92.009 Unspecified place in unspecified non-institutional (private) residence as the place of occurrence of the external cause | CPT/HCPCS: A0425; A0427 ==

== ENCOUNTER 2023-08-22 21:33 | Inpatient (IN) | payer MEDICARE, MEDICAID ==
[2023-08-22] MEDS: SODIUM CHLORIDE 0.9% 1,000 ML IV STA (22:01)
[2023-08-22 22:02] LABS: BASOPHILS # (AUTO) 0.1 10^3/uL (0.0-0.1); BASOPHILS % (AUTO) 0.9 %; EOSINOPHILS # (AUTO) 0.1 10^3/uL (0.0-0.7); EOSINOPHILS % (AUTO) 1.9 %; HCT - HEMATOCRIT 49.7 % (42.0-52.0); HGB - HEMOGLOBIN 16.2 g/dL (14.0-18.0); LYMPHOCYTES % (AUTO) 14.3 %; MEAN CORPUSCULAR HEMOGLOBIN 28.3 pg (27.0-31.0); MEAN CORPUSCULAR HGB CONC 32.6 g/dL (32.0-36.0); MEAN CORPUSCULAR VOLUME 86.9 fL (80.0-94.0); MEAN PLATELET VOLUME 10.4 fL (7.4-11.4); MONOCYTES # (AUTO) 0.4 10^3/uL (0.0-1.0); MONOCYTES % (AUTO) 6.2 %; NEUTROPHILS # (AUTO) 5.1 10^3/uL (1.5-6.6); NEUTROPHILS % (AUTO) 75.8 %; PLT - PLATELET COUNT 178 10^3/uL (130-450); RED BLOOD COUNT 5.72 10^6/uL (4.70-6.10); RED CELL DISTRIBUTION WIDTH 12.5 % (12.0-15.0); WHITE BLOOD COUNT 6.7 x10^3/uL (4.8-10.8)
[2023-08-22 22:03] LABS: VBG BASE EXCESS 1.5 mmol/L (-2 - +2); VBG HCO3 28.2 mmol/L (23-28); VBG OXYGEN SATURATION 57.9 % (60-80); VBG PCO2 51.7 mmHg (41-51); VBG PH 7.355 (7.31-7.41); VBG PO2 30.1 mmHg (25-47); VBG TOTAL CO2 29.8 mmol/L (24-29)
[2023-08-22 22:22] LABS: LIPASE 29 U/L (11-82); MAGNESIUM 1.5 mg/dL (1.7-2.3)
[2023-08-22 22:28] LABS: ALBUMIN 3.2 g/dL (3.2-5.5); ALKALINE PHOSPHATASE 109 IU/L (42-121); ALT ALANINE AMINOTRANSFERASE 42 IU/L (10-60); AST ASPARTATE AMINOTRANSFERASE 32 IU/L (10-42); BILIRUBIN,TOTAL 0.5 mg/dL (0.2-1.0); BUN - BLOOD UREA NITROGEN 23 mg/dL (6-20); CALCIUM 9.8 mg/dL (8.5-10.3); CARBON DIOXIDE - CO2 30 mmol/L (21-32); CHLORIDE 97 mmol/L (101-111); GFR - MDRD 74 (>89); GLUCOSE 333 mg/dL (74-104); POTASSIUM 4.6 mmol/L (3.5-4.5); SODIUM 133 mmol/L (135-145); TOTAL PROTEIN 6.5 g/dL (6.4-8.9)
[2023-08-22 22:33] LABS: KETONES, SERUM (ACETEST) NEGATIVE (NEGATIVE)
--- NOTE | 2023-08-22 22:33 | XRAY Report ---
PROCEDURE: Chest 1V INDICATIONS: weakness TECHNIQUE: One view of the chest was acquired. COMPARISON: Chest x-ray 09/23/2022. FINDINGS: Surgical changes and devices: Sternal wires. Lungs and pleura: No pleural effusions or pneumothorax. Lungs are clear. Mediastinum: Mediastinal contours appear normal. Heart size is enlarged. Bones and chest wall: No suspicious bony lesions. Overlying soft tissues appear unremarkable. IMPRESSION: No acute cardiopulmonary process. Reviewed by: Rosalee Sena MD on 08/22/2023 10:31 PM PDT Approved by: Rosalee Sena MD on 08/22/2023 10:31 PM PDT Station ID: [id number]
[2023-08-22] MEDS: MAGNESIUM SULFATE 2 GRAM 2 GM/50 ML BAG IV ONE (22:42)
--- NOTE | 2023-08-22 22:51 | ED Physician Documentation ---
History of Present Illness - Stated complaint Stated Complaint: GEN WEAKNESS - Chief complaint Chief Complaint: Neuro - History obtained from History obtained from: Patient, EMS - Additonal information Additional information: Patient is a 68-year-old male with a history of coronary artery disease and diabetes presenting for evaluation of generalized weakness. Patient states he was sitting in a chair at home when he went to stand up to Go to the kitchen for dinner when he felt too weak too stand and slumped down to the ground. He did not hit his head. There is no LOC. EMS was called to help him up and the patient was declining to come to the emergency department but then was too weak to stand and they told him they should bring him in for evaluation. Patient denies pain. Per EMS patient lives with his brother and their home is a [employer] home. Patient has not been compliant with any medication for at least a year Including medications for diabetes. Patient states he was out of the h ouse earlier today to get food. He states he was in his usual health earlier today and denies fever, cough, chest pain, trouble breathing, vomiting or diarrhea. He feels like he has been eating and hydrating okay. Denies alcohol or drug use. Review of Systems Constitutional: denies: Fever Cardiac: denies: Chest pain / pressure Respiratory: denies: Dyspnea GI: denies: Abdominal Pain Neurologic: reports: Generalized weakness. denies: Head injury PD PAST MEDICAL HISTORY - Past Medical History Cardiovascular: Hypertension, Coronary artery disease, [place] Respiratory: Shortness of breath, Sleep apnea Neuro: Peripheral neuropathy Endocrine/Autoimmune: Type 2 diabetes GI: Ulcers : None HEENT: Chronic vision loss, Other Psych: Depression Musculoskeletal: None Derm: None - Past Surgical History Past Surgical History: Yes Cardiovascular: CABG - Present Medications Home Medications: Ambulatory Orders Medication Instructions Recorded Confirmed No Known Home Medications 08/22/23 08/22/23 - Allergies Allergies/Adverse Reactions: Allergies Allergy/AdvReac Type Severity Reaction Status Date / Time No Known Drug Allergies Allergy Verified 08/22/23 21:38 - Social History Does the pt smoke?: Yes Smoking Status: Current every day smoker Does the pt drink ETOH?: No Does the pt have substance abuse?: No - Immunizations Immunizations are current?: Yes - POLST Patient has POLST: No PD ED PE NORMAL - General General: Alert and oriented X 3, No acute distress, Well developed/nourished - HEENT HEENT: Atraumatic, Moist mucous membranes, Pharynx benign - Neck Neck: Supple, no meningeal sign - Cardiac Cardiac: RRR - Respiratory Respiratory: No respiratory distress, Clear bilaterally - Abdomen Abdomen: Normal bowel sounds, Soft, Non tender, Non distended - Derm Derm: Warm and dry - Extremities Extremities: No deformity - Neuro Neuro: Alert and oriented X 3, benefits consultant 2-12 intact, No motor deficit, No sensory deficit, Normal speech Eye Opening: Spontaneous Motor: Obeys Commands Verbal: Oriented GCS Score: 15 Results - Vitals Vitals: Vital Signs - 24 hr 08/22/23 08/22/23 08/22/23 21:39 23:48 23:50 Temperature 36.4 C L Heart Rate 90 115 H Heart Rate [ 115 H Sitting] Heart Rate [ 125 H Standing] Heart Rate [ 115 H Supine] Respiratory 13 14 Rate Blood Pressure 131/76 H 126/89 H Blood Pressure 126/89 H [Sitting] Blood Pressure 108/94 H [Standing] Blood Pressure 168/93 H [Supine] O2 Saturation 94 95 08/23/23 08/23/23 01:00 02:27 Temperature Heart Rate 112 H Heart Rate [ 109 H Sitting] Heart Rate [ 124 H Standing] Heart Rate [ 97 Supine] Respiratory 14 Rate Blood Pressure 135/100 H Blood Pressure 126/85 H [Sitting] Blood Pressure 122/72 [Standing] Blood Pressure 111/77 [Supine] O2 Saturation 99 Oxygen O2 Source Room air - EKG (time done) 2210 EKG releavant findings:: EKG personally interpreted by author of this note. Relevant findings are: Rate 99, normal sinus rhythm, no STEMI, QTc 436 - Labs Labs: Laboratory Tests 08/22/23 08/22/23 08/22/23 21:55 21:55 21:55 WBC 6.7 RBC 5.72 Hgb 16.2 Hct 49.7 MCV 86.9 MCH 28.3 MCHC 32.6 RDW 12.5 Plt Count 178 MPV 10.4 Neut # (Auto) 5.1 Lymph # (Auto) 1.0 L Maury # (Auto) 0.4 Eos # (Auto) 0.1 Baso # (Auto) 0.1 Absolute Nucleated RBC 0.00 Nucleated RBC % 0.0 VBG pH 7.355 VBG pCO2 51.7 H VBG pO2 30.1 VBG HCO3 28.2 H VBG Total CO2 29.8 H VBG O2 Saturation 57.9 L VBG Base Excess 1.5 Sodium 133 L Potassium 4.6 H Chloride 97 L Carbon Dioxide 30 Anion Gap 6.0 BUN 23 H Creatinine 1.0 Estimated GFR (MDRD) 74 L Glucose 333 H Calcium 9.8 Magnesium 1.5 L Total Bilirubin 0.5 AST 32 ALT 42 Alkaline Phosphatase 109 Total Protein 6.5 Albumin 3.2 Globulin 3.3 Albumin/Globulin Ratio 1.0 Lipase 29 Urine Color Urine Clarity Urine pH Ur Specific [place] Urine Protein Urine Glucose (UA) Urine Ketones Urine Occult Blood Urine Nitrite Urine Bilirubin Urine Urobilinogen Ur Leukocyte Esterase Urine RBC Urine WBC Ur Squamous Epith Cells Urine Bacteria Ur Microscopic Review Urine Culture Comments Serum Ketones NEGATIVE 08/22/23 23:45 WBC RBC Hgb Hct MCV MCH MCHC RDW Plt Count MPV Neut # (Auto) Lymph # (Auto) Maury # (Auto) Eos # (Auto) Baso # (Auto) Absolute Nucleated RBC Nucleated RBC % VBG pH VBG pCO2 VBG pO2 VBG HCO3 VBG Total CO2 VBG O2 Saturation VBG Base Excess Sodium Potassium Chloride Carbon Dioxide Anion Gap BUN Creatinine Estimated GFR (MDRD) Glucose Calcium Magnesium Total Bilirubin AST ALT Alkaline Phosphatase Total Protein Albumin Globulin Albumin/Globulin Ratio Lipase Urine Color YELLOW Urine Clarity CLEAR Urine pH 6.0 Ur Specific [place] 1.020 Urine Protein 100 H Urine Glucose (UA) >=1000 H Urine Ketones NEGATIVE Urine Occult Blood SMALL H Urine Nitrite NEGATIVE Urine Bilirubin NEGATIVE Urine Urobilinogen 0.2 (NORMAL) Ur Leukocyte Esterase NEGATIVE Urine RBC 6-10 H Urine WBC 0-3 Ur Squamous Epith Cells NONE SEEN Urine Bacteria None Seen Ur Microscopic Review INDICATED Urine Culture Comments NOT INDICATED Serum Ketones PD Medical Decision Making - ED course Complexity details: reviewed results, re-evaluated patient, d/w patient ED course: Patient is a 60-year-old male presenting for evaluation of generalized weakness. Patient fell down as he was trying to get out of his chair tonight to grab some dinner. He was too weak to stand back up on his own and even with assistance from EMS was unable to stand up due to his weakness. No focal deficits. No head injury. Patient is a diabetic but not currently taking any of his medications. Denies chest pain or shortness of breath. No fever. A CBC, chemistries, urinalysis were obtained and reviewed. EKG is sinus. Labs significant for hyperglycemia. Magnesium of 1.5. IV replacement ordered. Patient was given a liter of IV fluids. Orthostatics were then checked and patient had a significant elevation in heart rate with standing and too weak to stand. Patient was then assisted back to bed and given a second liter of IV fluids. Recheck of orthostatics and with standing heart rate elevates to the 120s and he feels lightheaded.Therefore I feel he warrants observation in the hospital for further hydration and monitoring. Hopefully we can also help him get back on his medications and get back into The medical system for outpatient care. Patient is agreeable with plan for observation. Discussed with admitting hospitalist, Dr. Boyer. Departure - Departure Disposition: ED Place in Observation Clinical Impression: Orthostatic lightheadedness, Hyperglycemia Condition: Good
[2023-08-22 23:55] LABS: BILIRUBIN,URINE NEGATIVE (NEGATIVE); GLUCOSE, URINE (UA) >=1000 mg/dL (NEGATIVE); KETONES,URINE (UA) NEGATIVE (NEGATIVE); LEUKOCYTE ESTERASE, URINE NEGATIVE (NEGATIVE); NITRITE,URINE NEGATIVE (NEGATIVE); OCCULT BLOOD,URINE SMALL (NEGATIVE); PROTEIN,URINE 100 mg/dL (NEGATIVE); UROBILINOGEN,URINE 0.2 (NORMAL) E.U./dL (NORMAL)
[2023-08-23 00:02] LABS: CLARITY,URINE CLEAR (CLEAR)
[2023-08-23 00:03] LABS: BACTERIA,URINE None Seen /HPF (None Seen); SQUAMOUS EPITHELIAL CELL,UR NONE SEEN (<= Few); WBC,URINE 0-3 /HPF (0-3)
[2023-08-23] MEDS: SODIUM CHLORIDE 0.9% 1,000 ML IV STA (00:58)
[2023-08-23] MEDS: CALCIUM CARBONATE CHEW 500 MG TABLET PO STA (00:59)
--- NOTE | 2023-08-23 02:41 | HISTORY & PHYSICAL EXAMINATION ---
Chief Complaint - Chief Complaint Chief Complaint: Dizziness History of Present Illness - Admitted From Admitted From:: ER - History Obtained From Records Reviewed: Yes History obtained from: Patient, staff, chart Exam Limitations: Virtual exam - History of Present Illness HPI Comment/Other: H&P was conducted via video remotely, using Access Cart. Patient is in PA. Physician is in PA. No one is at bedside. 68 yo M with PMH of CAD s/p CABG, HTN, DM type 2 with Peripheral Neuropathy, RADHA, NC with medications presented to the ER via EMS for Dizziness, Weakness. Pt was sitting in a chair, stood up, felt weak, fell/slid to the ground, no injuries, did not hit head, no LOC. EMS called, they came and helped him to stand, but he was too weak to stand on his own, so they brought him into the ER. No CP. Pt says that he always has SOB, no change. No cough/F/C. Pt lives with his brother. They eat mostly microwaveable food. Pt had not eaten much today. EMS reported that the home looks like a hoarder's home. Pt stopped smoking 3 months ago b/c of productive cough. No N/V/abdo pain. Pt says that he has not taken medications x 3 years. He did see his PCP in 03/2023 and was prescribed medications. The medications were delivered to his home. He has heard that Metformin is causing SEs in people, including , so he stopped taking it. He lost his other medications. In the ER, +Orthostatic BP and tachycardia with standing, HR 115, Na 133, Mg 1.5, U/A: +ketones EKG: NSR at 99, +strain I, aVL CXR: NAD Pt was given IVF 2L, MagSO4 2 gm IV, Tums in the ER. History - Past Medical History Cardiovascular: reports: Hypertension, Coronary artery disease, [place] Respiratory: reports: Shortness of breath, Sleep apnea Neuro: reports: Peripheral neuropathy Endocrine/Autoimmune: reports: Type 2 diabetes GI: reports: Ulcers : reports: None HEENT: reports: Chronic vision loss, Other Psych: reports: Depression Musculoskeletal: reports: None Derm: reports: None MRSA Hx?: No - Past Surgical History Cardiovascular: reports: CABG - Substance History Use: Uses substance without health or social issues: NONE, Other (quit smoking 3 months ago) - POLST Patient has POLST: No Meds/Allgy - Home Medications Home Medications: Ambulatory Orders Medication Instructions Recorded Confirmed No Known Home Medications 08/22/23 08/22/23 - Allergies Allergies/Adverse Reactions: Allergies Allergy/AdvReac Type Severity Reaction Status Date / Time No Known Drug Allergies Allergy Verified 08/22/23 21:38 Review of Systems - All Other Systems All Other Systems: reports: Reviewed and negative Exam - Vital Signs Reviewed Vital Signs: Yes Vital Signs: Vital Signs x48h Temp Pulse Pulse Pulse Pulse Resp BP 08/23/23 02:27 109 H 124 H 97 08/23/23 01:00 112 H 14 135/100 H 08/22/23 23:50 115 H 14 126/89 H 08/22/23 23:48 115 H 125 H 115 H 08/22/23 21:39 36.4 C L 90 13 131/76 H BP BP BP Pulse Ox 08/23/23 02:27 126/85 H 122/72 111/77 08/23/23 01:00 99 08/22/23 23:50 95 08/22/23 23:48 126/89 H 108/94 H 168/93 H 08/22/23 21:39 94 - Physical Exam General Appearance: positive: No acute distress, Alert Eyes Bilateral: positive: EOMI, No scleral icterus ENT: positive: Dry mucous membranes Respiratory: positive: Other (Access cart stethoscope not working; per ER Provider: CTA B/L) Cardiovascular: positive: Other (Access cart stethoscope not working; per ER Provider: RRR, no murmurs) Abdomen: positive: Other (per ER Provider: non-distended, NT, Soft) Extremities: positive: Other (per ER Provider: moves all extrem, no edema) Neurologic/Psychiatric: positive: Oriented x3, Mood/affect nml, Other (A+Ox3, n ormal speech, per ER Provider: NFD) Conclusion/Plan - Problem List (1) Dizziness Conclusion/Plan: Dizziness Weakness Fall Orthostatic Hypotension Tachycardia Hyponatremia Dehydration +urine ketones -+Orthostatic BP and tachycardia with standing, HR 115, Na 133, U/A: +ketones -CXR: NAD -Pt was given IVF 2L, MagSO4 2 gm IV, Tums in the ER. -admit to Obs/Med tele -most likely has autonomic neuropathy d/t uncontrolled DM -IVF -Echo, Carotid U/S ordered -PT/OT consulted -check Lipids, TSH, Hgba1c Low Magnesium -Mg 1.5 -Pt was given MagSO4 2 gm IV in the ER. -supplement PRN CAD s/p CABG HTN No CP -EKG: NSR at 99, +strain I, aVL -daily 81 mg ASA -trend Troponins -Echo ordered DM type 2 with Peripheral Neuropathy -Glc 333 -accuchecks, SS Insulin, Hypoglycemic protocol -check Hgba1c RADHA -not on CPAP NC with medications -pt has concerns about medication side effects and loses medications -SW consult VTE Prophylaxis: Lovenox Code Status: D/W pt; he is Full Code ~Magda Boyer MD Hospitalist - Lab Results Lab results reviewed: Yes Fish Bones: 08/22/23 21:55 08/22/23 21:55
[2023-08-23] MEDS ORDERED: ACETAMINOPHEN 325 MG TABLET PO PRN (02:50)
[2023-08-23] MEDS ORDERED: SODIUM CHLORIDE FLUSH 0.9% 10 ML SYRINGE IVP PRN (02:50)
[2023-08-23] MEDS ORDERED: ONDANSETRON 4 MG/2 ML VIAL IVP PRN (02:50)
[2023-08-23] MEDS ORDERED: ONDANSETRON ODT 4 MG TABLET TL PRN (02:50)
[2023-08-23] MEDS ORDERED: CALCIUM CARBONATE CHEW 500 MG TABLET PO PRN (03:26)
[2023-08-23] MEDS: SODIUM CHLORIDE 0.9% 1,000 ML IV SCH (05:12)
[2023-08-23 05:39] LABS: BASOPHILS # (AUTO) 0.1 10^3/uL (0.0-0.1); BASOPHILS % (AUTO) 0.6 %; EOSINOPHILS # (AUTO) 0.2 10^3/uL (0.0-0.7); EOSINOPHILS % (AUTO) 1.9 %; HCT - HEMATOCRIT 46.6 % (42.0-52.0); HGB - HEMOGLOBIN 15.6 g/dL (14.0-18.0); LYMPHOCYTES # (AUTO) 1.1 10^3/uL (1.5-3.5); LYMPHOCYTES % (AUTO) 14.2 %; MEAN CORPUSCULAR HEMOGLOBIN 28.8 pg (27.0-31.0); MEAN CORPUSCULAR HGB CONC 33.5 g/dL (32.0-36.0); MEAN CORPUSCULAR VOLUME 86.1 fL (80.0-94.0); MEAN PLATELET VOLUME 10.1 fL (7.4-11.4); MONOCYTES # (AUTO) 0.6 10^3/uL (0.0-1.0); MONOCYTES % (AUTO) 7.1 %; NEUTROPHILS % (AUTO) 75.8 %; PLT - PLATELET COUNT 185 10^3/uL (130-450); RED BLOOD COUNT 5.41 10^6/uL (4.70-6.10); RED CELL DISTRIBUTION WIDTH 12.4 % (12.0-15.0); WHITE BLOOD COUNT 7.9 x10^3/uL (4.8-10.8)
[2023-08-23 05:54] LABS: CHOL/HDL RATIO 5.8 (<5.0); CHOLESTEROL 210 mg/dL; HDL CHOLESTEROL 36 mg/dL; LDL CHOLESTEROL,CALCULATED 106 mg/dL; LDL/HDL RATIO 2.9 (<3.6); TRIGLYCERIDES 340 mg/dL (48-352); VLDL CHOLESTEROL 68 mg/dL
[2023-08-23 05:56] LABS: CALCIUM 9.4 mg/dL (8.5-10.3); CREATININE 0.9 mg/dL (0.6-1.3); MAGNESIUM 1.6 mg/dL (1.7-2.3); POTASSIUM 4.1 mmol/L (3.5-4.5)
[2023-08-23 06:38] LABS: THYROID STIMULATING HORMONE 1.83 uIU/mL (0.34-5.60)
[2023-08-23] MEDS: ASPIRIN CHEW 81 MG TABLET PO SCH (08:17)
[2023-08-23] MEDS: SODIUM CHLORIDE FLUSH 0.9% 10 ML SYRINGE IVP SCH (08:17)
[2023-08-23] MEDS: ENOXAPARIN 40 MG/0.4 ML SYRINGE SUBQ SCH (08:17)
[2023-08-23] MEDS: INSULIN LISPRO 300 UNIT/3 ML PEN SUBQ SCH (08:22)
--- NOTE | 2023-08-23 10:09 | PHARMACY PROGRESS NOTE ---
- Best Possible Medication History Admit Date and Time: 08/23/23 0250 Processed by: Nursing Medications reviewed in ED?: Yes Medication History completed: Yes Patient Interview: Completed As the person ultimately responsible for medication therapy, providers are able to order a medication from an existing home medication list in [facility] via the "Reconcile Routine" prior to Confirmation of that medication by technical support internship. Such practice is discouraged except when the physician, in their clinical judgment, deems that a medical need exists for a medication without regard to previous use.
[2023-08-23 10:18] LABS: ESTIMATED AVERAGE GLUCOSE 303 mg/dL (70-100); HEMOGLOBIN A1c% 12.2 % (4.27-6.07)
[2023-08-24 05:48] LABS: BASOPHILS % (AUTO) 0.7 %; EOSINOPHILS # (AUTO) 0.2 10^3/uL (0.0-0.7); HGB - HEMOGLOBIN 14.9 g/dL (14.0-18.0); LYMPHOCYTES # (AUTO) 1.6 10^3/uL (1.5-3.5); LYMPHOCYTES % (AUTO) 27.2 %; MEAN CORPUSCULAR HEMOGLOBIN 27.9 pg (27.0-31.0); MEAN CORPUSCULAR HGB CONC 32.4 g/dL (32.0-36.0); MEAN PLATELET VOLUME 10.2 fL (7.4-11.4); MONOCYTES # (AUTO) 0.4 10^3/uL (0.0-1.0); MONOCYTES % (AUTO) 7.4 %; NEUTROPHILS # (AUTO) 3.5 10^3/uL (1.5-6.6); PLT - PLATELET COUNT 171 10^3/uL (130-450); RED BLOOD COUNT 5.35 10^6/uL (4.70-6.10); RED CELL DISTRIBUTION WIDTH 12.3 % (12.0-15.0); WHITE BLOOD COUNT 5.8 x10^3/uL (4.8-10.8)
[2023-08-24 06:06] LABS: CALCIUM 8.8 mg/dL (8.5-10.3); CREATININE 0.8 mg/dL (0.6-1.3); MAGNESIUM 1.5 mg/dL (1.7-2.3); PHOSPHORUS 2.5 mg/dL (2.5-5.0)
[2023-08-24] MEDS: INSULIN LISPRO 300 UNIT/3 ML PEN SUBQ SCH (09:00)
[2023-08-24] MEDS: MAGNESIUM OXIDE 400 MG TABLET PO SCH (18:55)
--- NOTE | 2023-08-24 20:58 | PROVIDER PROGRESS NOTE ---
Assessment/Plan - Problem List (1) Orthostatic hypotension Assessment/Plan: Patient has symptomatic orthostatic hypotension and drops his systolic blood pressure by 20 points or more upon standing. Patient most likely has a peripheral neuropathy that may have been contributing to his symptoms and orthos tatic hypotension. Plan is for patient to undergo a trial of cortisone 0.1 mg daily. May increase on a weekly interval to 0.2 mg daily as tolerated. (2) Diabetes Mellitus Type 2. Assessment/Plan: Discussed the importance of taking his medications and patient is agreeable to a trial of medications. Patient is agreeable to a trial of metformin. Metformin has been ordered. (3) Hypomagnesia Assessment/Plan: Replacement - Current Meds Current Meds: Current Medications Generic Name Dose Route Start Last Admin Trade Name Eric PRN Reason Stop Dose Admin Aspirin 81 mg 08/23/23 09:00 08/24/23 08:59 Aspirin Chew 81 Mg Tablet PO 81 mg DAILY ELDER Administration Enoxaparin Sodium 40 mg 08/23/23 09:00 08/24/23 08:59 Enoxaparin 40 Mg/0.4 Ml Syringe SUBQ 40 mg DAILY ELDER Administration Sodium Chloride 1,000 mls @ 100 mls/hr 08/23/23 03:00 08/24/23 10:58 Normal Saline 0.9% IV 0 mls/hr .Q10H ELDER Infusion Insulin Human Lispro 1 - 9 unit 08/24/23 08:00 08/24/23 18:55 Insulin Lispro 300 Unit/3 Ml Pen SUBQ 3 unit 0800,1200,1700,2100 ELDER Administration Protocol Magnesium Oxide 400 mg 08/24/23 18:00 08/24/23 18:55 Magnesium Oxide 400 Mg Tablet PO 400 mg DAILYWM ELDER Administration Sodium Chloride 10 ml 08/23/23 09:00 08/24/23 19:03 Sodium Chloride Flush 0.9% 10 Ml Syringe IVP Not Given 0100,0900,1700 [facility] - Lab Result Fish Bone Diagrams: 08/24/23 05:41 08/24/23 05:41 - Additional Planning My Orders: My Active Orders 08/24/23 08:00 Insulin Lispro [Humalog Kwikpen U-100] 1 - 9 unit SUBQ 0800,1200,1700,2100 08/24/23 18:00 Magnesium Oxide [Mag Ox] 400 mg PO DAILYWM 08/24/23 20:52 metFORMIN [Glucophage] 500 mg PO BIDWM Subjective - Subjective Patient Reports: Other (Alert. Continues to complain of dizziness and poor balance upon standing. He denies chest pain, shortness of breath and abdominal pain. No other complaints at this time.) Objective Vital Signs: Vital Signs - 24 hr 08/24/23 08/24/23 08/24/23 01:00 05:00 09:00 Temperature 37.0 C 37.1 C 36.8 C Heart Rate [ 90 87 98 Brachial] Respiratory 16 18 18 Rate Blood Pressure 139/97 H 131/91 H 130/91 H [Right Brachial artery] O2 Saturation 95 96 95 08/24/23 20:01 Temperature 36.6 C Heart Rate [ 72 Brachial] Respiratory 20 Rate Blood Pressure 126/76 [Right Brachial artery] O2 Saturation 97 Oxygen O2 Source Room air I&O (Last 24 Hrs): Intake and Output Totals x24h 08/22/23 08/23/23 08/24/23 23:59 23:59 23:59 Intake Total 1049 2960 3371.667 Output Total 1525 1200 Balance 1049 1435 2171.667 General: Alert, No acute distress HEENT: Atraumatic Neck: No JVD, No thyromegaly Neuro: Alert, Non Focal Cardiovascular: Other (Positive S1-S2 no extra heart sounds.) Respiratory: Other (Good air exchange in all lung rendon no wheezing no crackles.) Abdomen: Other (Soft nontender positive bowel sounds no hepatosplenomegaly) Extremities: No cyanosis, No edema Skin: No rashes - Results Results: Laboratory Results WBC 5.8 x10^3/uL (4.8-10.8) 08/24/23 05:41 RBC 5.35 10^6/uL (4.70-6.10) 08/24/23 05:41 Hgb 14.9 g/dL (14.0-18.0) 08/24/23 05:41 Hct 46.0 % (42.0-52.0) 08/24/23 05:41 MCV 86.0 fL (80.0-94.0) 08/24/23 05:41 MCH 27.9 pg (27.0-31.0) 08/24/23 05:41 MCHC 32.4 g/dL (32.0-36.0) 08/24/23 05:41 RDW 12.3 % (12.0-15.0) 08/24/23 05:41 Plt Count 171 10^3/uL (130-450) 08/24/23 05:41 MPV 10.2 fL (7.4-11.4) 08/24/23 05:41 Neut # (Auto) 3.5 10^3/uL (1.5-6.6) 08/24/23 05:41 Lymph # (Auto) 1.6 10^3/uL (1.5-3.5) 08/24/23 05:41 [place] # (Auto) 0.4 10^3/uL (0.0-1.0) 08/24/23 05:41 Eos # (Auto) 0.2 10^3/uL (0.0-0.7) 08/24/23 05:41 Baso # (Auto) 0.0 10^3/uL (0.0-0.1) 08/24/23 05:41 Absolute Nucleated RBC 0.00 x10^3/uL 08/24/23 05:41 Nucleated RBC % 0.0 /100WBC 08/24/23 05:41 VBG pH 7.355 (7.31-7.41) 08/22/23 21:55 VBG pCO2 51.7 mmHg (41-51) H 08/22/23 21:55 VBG pO2 30.1 mmHg (25-47) 08/22/23 21:55 VBG HCO3 28.2 mmol/L (23-28) H 08/22/23 21:55 VBG Total CO2 29.8 mmol/L (24-29) H 08/22/23 21:55 VBG O2 Saturation 57.9 % (60-80) L 08/22/23 21:55 VBG Base Excess 1.5 mmol/L (-2 - +2) 08/22/23 21:55 Sodium 135 mmol/L (135-145) 08/24/23 05:41 Potassium 4.0 mmol/L (3.5-4.5) 08/24/23 05:41 Chloride 103 mmol/L (101-111) 08/24/23 05:41 Carbon Dioxide 28 mmol/L (21-32) 08/24/23 05:41 Anion Gap 4.0 (6-13) L 08/24/23 05:41 BUN 15 mg/dL (6-20) 08/24/23 05:41 Creatinine 0.8 mg/dL (0.6-1.3) 08/24/23 05:41 Estimated GFR (MDRD) 96 (>89) 08/24/23 05:41 Glucose 243 mg/dL (74-104) H 08/24/23 05:41 POC Whole Bld Glucose 198 mg/dL (70 - 100) H 08/24/23 16:51 Estimat Average Glucose 303 mg/dL (70-100) H 08/23/23 05:30 Hemoglobin A1c % 12.2 % (4.27-6.07) H 08/23/23 05:30 Calcium 8.8 mg/dL (8.5-10.3) 08/24/23 05:41 Phosphorus 2.5 mg/dL (2.5-5.0) 08/24/23 05:41 Magnesium 1.5 mg/dL (1.7-2.3) L 08/24/23 05:41 Total Bilirubin 0.5 mg/dL (0.2-1.0) 08/22/23 21:55 AST 32 IU/L (10-42) 08/22/23 21:55 ALT 42 IU/L (10-60) 08/22/23 21:55 Alkaline Phosphatase 109 IU/L (42-121) 08/22/23 21:55 Troponin I High Sens 15.8 ng/L (2.3-19.7) 08/23/23 20:36 Total Protein 6.5 g/dL (6.4-8.9) 08/22/23 21:55 Albumin 3.2 g/dL (3.2-5.5) 08/22/23 21:55 Globulin 3.3 g/dL (2.1-4.2) 08/22/23 21:55 Albumin/Globulin Ratio 1.0 (1.0-2.2) 08/22/23 21:55 Triglycerides 340 mg/dL (48-352) 08/23/23 05:30 Cholesterol 210 mg/dL (-200) H 08/23/23 05:30 LDL Cholesterol, Calc 106 mg/dL (-129) 08/23/23 05:30 VLDL Cholesterol 68 mg/dL 08/23/23 05:30 HDL Cholesterol 36 mg/dL (60-) L 08/23/23 05:30 LDL/HDL Ratio 2.9 (<3.6) 08/23/23 05:30 Cholesterol/HDL Ratio 5.8 (<5.0) 08/23/23 05:30 Lipase 29 U/L (11-82) 08/22/23 21:55 TSH 1.83 uIU/mL (0.34-5.60) 08/23/23 05:30 Urine Color YELLOW 08/22/23 23:45 Urine Clarity CLEAR (CLEAR) 08/22/23 23:45 Urine pH 6.0 PH (5.0-7.5) 08/22/23 23:45 Ur Specific [place] 1.020 (1.002-1.030) 08/22/23 23:45 Urine Protein 100 mg/dL (NEGATIVE) H 08/22/23 23:45 Urine Glucose (UA) >=1000 mg/dL (NEGATIVE) H 08/22/23 23:45 Urine Ketones NEGATIVE mg/dL (NEGATIVE) 08/22/23 23:45 Urine Occult Blood SMALL (NEGATIVE) H 08/22/23 23:45 Urine Nitrite NEGATIVE (NEGATIVE) 08/22/23 23:45 Urine Bilirubin NEGATIVE (NEGATIVE) 08/22/23 23:45 Urine Urobilinogen 0.2 (NORMAL) E.U./dL (NORMAL) 08/22/23 23:45 Ur Leukocyte Esterase NEGATIVE (NEGATIVE) 08/22/23 23:45 Urine RBC 6-10 /HPF (0-5) H 08/22/23 23:45 Urine WBC 0-3 /HPF (0-3) 08/22/23 23:45 Ur Squamous Epith Cells NONE SEEN (<= Few) 08/22/23 23:45 Urine Bacteria None Seen /HPF (None Seen) 08/22/23 23:45 Ur Microscopic Review INDICATED 08/22/23 23:45 Urine Culture Comments NOT INDICATED 08/22/23 23:45 Serum Ketones NEGATIVE (NEGATIVE) 08/22/23 21:55
[2023-08-24] MEDS: metFORMIN 500 MG TABLET PO SCH (22:00)
[2023-08-25 05:31] LABS: BASOPHILS # (AUTO) 0.1 10^3/uL (0.0-0.1); BASOPHILS % (AUTO) 0.9 %; EOSINOPHILS # (AUTO) 0.2 10^3/uL (0.0-0.7); EOSINOPHILS % (AUTO) 4.1 %; HCT - HEMATOCRIT 44.2 % (42.0-52.0); HGB - HEMOGLOBIN 14.5 g/dL (14.0-18.0); LYMPHOCYTES # (AUTO) 1.3 10^3/uL (1.5-3.5); LYMPHOCYTES % (AUTO) 23.3 %; MEAN CORPUSCULAR HEMOGLOBIN 28.4 pg (27.0-31.0); MEAN CORPUSCULAR HGB CONC 32.8 g/dL (32.0-36.0); MEAN CORPUSCULAR VOLUME 86.5 fL (80.0-94.0); MEAN PLATELET VOLUME 10.3 fL (7.4-11.4); MONOCYTES # (AUTO) 0.4 10^3/uL (0.0-1.0); MONOCYTES % (AUTO) 7.4 %; NEUTROPHILS # (AUTO) 3.5 10^3/uL (1.5-6.6); NEUTROPHILS % (AUTO) 63.6 %; PLT - PLATELET COUNT 160 10^3/uL (130-450); RED BLOOD COUNT 5.11 10^6/uL (4.70-6.10); RED CELL DISTRIBUTION WIDTH 12.4 % (12.0-15.0); WHITE BLOOD COUNT 5.6 x10^3/uL (4.8-10.8)
[2023-08-25 05:44] LABS: CALCIUM 8.4 mg/dL (8.5-10.3); CREATININE 0.6 mg/dL (0.6-1.3); MAGNESIUM 1.5 mg/dL (1.7-2.3); POTASSIUM 3.7 mmol/L (3.5-4.5)
[2023-08-25] MEDS: FLUDROCORTISONE 0.1 MG TABLET PO SCH (08:04)
--- NOTE | 2023-08-25 21:31 | PROVIDER PROGRESS NOTE ---
Assessment/Plan - Problem List (1) Orthostatic hypotension Assessment/Plan: Patient has symptomatic orthostatic hypotension and drops his systolic blood pressure by 20 points or more upon standing. Patient most likely has a peripheral neuropathy that may have been contributing to his symptoms and orthos tatic hypotension. Fludrocortisone 0.1 mg daily initiated. Continue to follow orthstatic blood pre ssures (2) Diabetes Mellitus Type 2. Assessment/Plan: Discussed the importance of taking his medications and patient is agreeable to a trial of medications. Patient is agreeable to a trial of metformin. Continue metformin and sliding scale. (3) Hypomagnesia Assessment/Plan: Replacement - Current Meds Current Meds: Current Medications Generic Name Dose Route Start Last Admin Trade Name Freq PRN Reason Stop Dose Admin Aspirin 81 mg 08/23/23 09:00 08/25/23 08:04 Aspirin Chew 81 Mg Tablet PO 81 mg DAILY ELDER Administration Enoxaparin Sodium 40 mg 08/23/23 09:00 08/25/23 10:36 Enoxaparin 40 Mg/0.4 Ml Syringe SUBQ Not Given DAILY ELDER Fludrocortisone Acetate 0.1 mg 08/25/23 09:00 08/25/23 08:04 Fludrocortisone 0.1 Mg Tablet PO 0.1 mg DAILY ELDER Administration Sodium Chloride 1,000 mls @ 100 mls/hr 08/23/23 03:00 08/25/23 18:33 Normal Saline 0.9% IV 100 mls/hr .Q10H ELDER Administration Insulin Human Lispro 1 - 9 unit 08/24/23 08:00 08/25/23 17:12 Insulin Lispro 300 Unit/3 Ml Pen SUBQ 5 unit 0800,1200,1700,2100 ELDER Administration Protocol Magnesium Oxide 400 mg 08/24/23 18:00 08/25/23 08:04 Magnesium Oxide 400 Mg Tablet PO 400 mg DAILYWM ELDER Administration Metformin HCl 500 mg 08/24/23 20:52 08/25/23 17:30 Metformin 500 Mg Tablet PO 500 mg BIDWM ELDER Administration Sodium Chloride 10 ml 08/23/23 09:00 08/25/23 17:07 Sodium Chloride Flush 0.9% 10 Ml Syringe IVP Not Given 0100,0900,1700 ELDER - Lab Result Fish Bone Diagrams: 08/25/23 05:17 08/25/23 05:17 - Additional Planning My Orders: My Active Orders 08/24/23 20:52 metFORMIN [Glucophage] 500 mg PO BIDWM 08/25/23 09:00 Fludrocortisone [Florinef] 0.1 mg PO DAILY Subjective - Subjective Patient Reports: Other (Alert. Denies chest pain, abdominal pain, shortness of breath no other complaints at this time.) Objective Vital Signs: Vital Signs - 24 hr 08/25/23 08/25/23 08/25/23 00:13 05:18 07:48 Temperature 37.0 C 36.7 C 37.1 C Heart Rate [ 81 83 84 Brachial] Respiratory 18 18 17 Rate Blood Pressure 131/92 H 122/83 H 135/93 H [Right Brachial artery] O2 Saturation 95 96 93 08/25/23 08/25/23 14:00 15:40 Temperature 37.1 C 37.0 C Heart Rate [ 77 84 Brachial] Respiratory 18 16 Rate Blood Pressure 133/79 H 115/76 [Right Brachial artery] O2 Saturation 96 98 Oxygen O2 Source Room air I&O (Last 24 Hrs): Intake and Output Totals x24h 08/23/23 08/24/23 08/25/23 23:59 23:59 23:59 Intake Total 2960 3739.667 3840 Output Total 1525 1200 Balance 1435 2539.667 3840 General: Alert, Cooperative Neck: No JVD, No thyromegaly Neuro: Alert, Non Focal Cardiovascular: Other (Positive S1-S2 no extra heart sounds.) Respiratory: Other (Good air exchange in all lung rendon no wheezing no crackles) Abdomen: Other (Positive bowel sounds soft nontender nondistended) Extremities: No cyanosis, No edema Skin: No rashes - Results Results: Laboratory Results WBC 5.6 x10^3/uL (4.8-10.8) 08/25/23 05:17 RBC 5.11 10^6/uL (4.70-6.10) 08/25/23 05:17 Hgb 14.5 g/dL (14.0-18.0) 08/25/23 05:17 Hct 44.2 % (42.0-52.0) 08/25/23 05:17 MCV 86.5 fL (80.0-94.0) 08/25/23 05:17 MCH 28.4 pg (27.0-31.0) 08/25/23 05:17 MCHC 32.8 g/dL (32.0-36.0) 08/25/23 05:17 RDW 12.4 % (12.0-15.0) 08/25/23 05:17 Plt Count 160 10^3/uL (130-450) 08/25/23 05:17 MPV 10.3 fL (7.4-11.4) 08/25/23 05:17 Neut # (Auto) 3.5 10^3/uL (1.5-6.6) 08/25/23 05:17 Lymph # (Auto) 1.3 10^3/uL (1.5-3.5) L 08/25/23 05:17 [place] # (Auto) 0.4 10^3/uL (0.0-1.0) 08/25/23 05:17 Eos # (Auto) 0.2 10^3/uL (0.0-0.7) 08/25/23 05:17 Baso # (Auto) 0.1 10^3/uL (0.0-0.1) 08/25/23 05:17 Absolute Nucleated RBC 0.00 x10^3/uL 08/25/23 05:17 Nucleated RBC % 0.0 /100WBC 08/25/23 05:17 VBG pH 7.355 (7.31-7.41) 08/22/23 21:55 VBG pCO2 51.7 mmHg (41-51) H 08/22/23 21:55 VBG pO2 30.1 mmHg (25-47) 08/22/23 21:55 VBG HCO3 28.2 mmol/L (23-28) H 08/22/23 21:55 VBG Total CO2 29.8 mmol/L (24-29) H 08/22/23 21:55 VBG O2 Saturation 57.9 % (60-80) L 08/22/23 21:55 VBG Base Excess 1.5 mmol/L (-2 - +2) 08/22/23 21:55 Sodium 136 mmol/L (135-145) 08/25/23 05:17 Potassium 3.7 mmol/L (3.5-4.5) 08/25/23 05:17 Chloride 105 mmol/L (101-111) 08/25/23 05:17 Carbon Dioxide 27 mmol/L (21-32) 08/25/23 05:17 Anion Gap 4.0 (6-13) L 08/25/23 05:17 BUN 12 mg/dL (6-20) 08/25/23 05:17 Creatinine 0.6 mg/dL (0.6-1.3) 08/25/23 05:17 Estimated GFR (MDRD) 134 (>89) 08/25/23 05:17 Glucose 191 mg/dL (74-104) H 08/25/23 05:17 POC Whole Bld Glucose 233 mg/dL (70 - 100) H 08/25/23 20:44 Estimat Average Glucose 303 mg/dL (70-100) H 08/23/23 05:30 Hemoglobin A1c % 12.2 % (4.27-6.07) H 08/23/23 05:30 Calcium 8.4 mg/dL (8.5-10.3) L 08/25/23 05:17 Phosphorus 2.5 mg/dL (2.5-5.0) 08/24/23 05:41 Magnesium 1.5 mg/dL (1.7-2.3) L 08/25/23 05:17 Total Bilirubin 0.5 mg/dL (0.2-1.0) 08/22/23 21:55 AST 32 IU/L (10-42) 08/22/23 21:55 ALT 42 IU/L (10-60) 08/22/23 21:55 Alkaline Phosphatase 109 IU/L (42-121) 08/22/23 21:55 Troponin I High Sens 15.8 ng/L (2.3-19.7) 08/23/23 20:36 Total Protein 6.5 g/dL (6.4-8.9) 08/22/23 21:55 Albumin 3.2 g/dL (3.2-5.5) 08/22/23 21:55 Globulin 3.3 g/dL (2.1-4.2) 08/22/23 21:55 Albumin/Globulin Ratio 1.0 (1.0-2.2) 08/22/23 21:55 Triglycerides 340 mg/dL (48-352) 08/23/23 05:30 Cholesterol 210 mg/dL (-200) H 08/23/23 05:30 LDL Cholesterol, Calc 106 mg/dL (-129) 08/23/23 05:30 VLDL Cholesterol 68 mg/dL 08/23/23 05:30 HDL Cholesterol 36 mg/dL (60-) L 08/23/23 05:30 LDL/HDL Ratio 2.9 (<3.6) 08/23/23 05:30 Cholesterol/HDL Ratio 5.8 (<5.0) 08/23/23 05:30 Lipase 29 U/L (11-82) 08/22/23 21:55 TSH 1.83 uIU/mL (0.34-5.60) 08/23/23 05:30 Urine Color YELLOW 08/22/23 23:45 Urine Clarity CLEAR (CLEAR) 08/22/23 23:45 Urine pH 6.0 PH (5.0-7.5) 08/22/23 23:45 Ur Specific [place] 1.020 (1.002-1.030) 08/22/23 23:45 Urine Protein 100 mg/dL (NEGATIVE) H 08/22/23 23:45 Urine Glucose (UA) >=1000 mg/dL (NEGATIVE) H 08/22/23 23:45 Urine Ketones NEGATIVE mg/dL (NEGATIVE) 08/22/23 23:45 Urine Occult Blood SMALL (NEGATIVE) H 08/22/23 23:45 Urine Nitrite NEGATIVE (NEGATIVE) 08/22/23 23:45 Urine Bilirubin NEGATIVE (NEGATIVE) 08/22/23 23:45 Urine Urobilinogen 0.2 (NORMAL) E.U./dL (NORMAL) 08/22/23 23:45 Ur Leukocyte Esterase NEGATIVE (NEGATIVE) 08/22/23 23:45 Urine RBC 6-10 /HPF (0-5) H 08/22/23 23:45 Urine WBC 0-3 /HPF (0-3) 08/22/23 23:45 Ur Squamous Epith Cells NONE SEEN (<= Few) 08/22/23 23:45 Urine Bacteria None Seen /HPF (None Seen) 08/22/23 23:45 Ur Microscopic Review INDICATED 08/22/23 23:45 Urine Culture Comments NOT INDICATED 08/22/23 23:45 Serum Ketones NEGATIVE (NEGATIVE) 08/22/23 21:55
[2023-08-25 22:06] LABS: CALCIUM 8.6 mg/dL (8.5-10.3); CREATININE 0.9 mg/dL (0.6-1.3); POTASSIUM 3.9 mmol/L (3.5-4.5)
[2023-08-26 05:20] LABS: CALCIUM 8.3 mg/dL (8.5-10.3); CREATININE 0.8 mg/dL (0.6-1.3); MAGNESIUM 1.5 mg/dL (1.7-2.3); PHOSPHORUS 2.1 mg/dL (2.5-5.0); POTASSIUM 3.6 mmol/L (3.5-4.5)
--- NOTE | 2023-08-26 14:54 | DISCHARGE SUMMARY ---
Discharge Summary Admit Date: 08/23/23 Discharge Date: 08/26/23 Discharging Provider: Wilver Medrano MD Primary Care Provider: No PCP at this time Code Status: Attempt Resuscitation Condition at Discharge: Stable Discharge Disposition: 01 Home, Self Care - DIAGNOSES Admission Diagnoses: (1) Dizziness (2) Orthostatic Hypotension (3) Diabetes Mellitus Type 2 (4) Neuropathy Discharge Diagnoses with Status of Each Condition: (1) Orthostatic hypotension (2) Diabetes Mellitus Type 2 with neuropathy. (3) Hypomagnesia - HPI History of Present Illness: Per Dr. Magda Boyer's history and physical: H&P was conducted via video remotely, using Access Cart. [place] is in [place] Physician is in [place]. No one is at bedside. 68 yo M with PMH of CAD s/p CABG, HTN, DM type 2 with Peripheral Neuropathy, RADHA, NC with medications presented to the ER via EMS for Dizziness, Weakness. Pt was sitting in a chair, stood up, felt weak, fell/slid to the ground, no injuries, did not hit head, no LOC. EMS called, they came and helped him to stand, but he was too weak to stand on his own, so they brought him into the ER. No CP. Pt says that he always has SOB, no change. No cough/F/C. Pt lives with his brother. They eat mostly microwaveable food. Pt had not eaten much today. EMS reported that the home looks like a hoarder's home. Pt stopped smoking 3 months ago b/c of productive cough. No N/V/abdo pain. Pt says that he has not taken medications x 3 years. He did see his PCP in 03/2023 and was prescribed medications. The medications were delivered to his home. He has heard that M etformin is causing SEs in people, including , so he stopped taking it. He lost his other medications. In the ER, +Orthostatic BP and tachycardia with standing, HR 115, Na 133, Mg 1.5, U/A: +ketones EKG: NSR at 99, +strain I, aVL CXR: NAD Pt was given IVF 2L, MagSO4 2 gm IV, Tums in the ER. - HOSPITAL COURSE Hospital Course: Hospital Course: In the emergency room, he underwent a chest x-ray which revealed no acute cardiopulmonary process. He was admitted to the hospital under the status of inpatient for symptoms of dizziness, weakness, tachycardia and orthostatic hypotension. It is felt that his orthostatic hypotension may be related to his neuropathy that may be secondary to uncontrolled diabetes mellitus. He underwent an echocardiogram which revealed normal left ventricular size with an ejection fraction of 50% and mild diastolic dysfunction. The right ventricle is of normal size and function. The aortic valve is mildly sclerotic with normal function. The patient received IV fluid during his hospitalization. Despite rehydration, patient continued to have symptomatic orthostatic hypotension. Treatment was initiated with fludrocortisone 0.1 mg daily and orthostatic hypotension resolved. Mr. Mahajan was previously prescribed metformin as an outpatient, however, patient never took the metformin because it he thought it would harm him. Metformin as a treatment for diabetes mellitus type 2 was discussed during this hospitalization and patient is amendable to initiating treatment with metformin. Currently he is on 500 mg twice daily. The medication can be increased as tolerated. If his blood sugars are not well-controlled after initiation of metformin and increase to the maximum dose that he can tolerate, treatment with insulin may need to be initiated. Discussed with Mr. Mahajan the importance of taking his medications as directed and obtaining a primary care provider. - ALLERGIES Allergies/Adverse Reactions: Allergies Allergy/AdvReac Type Severity Reaction Status Date / Time No Known Drug Allergies Allergy Verified 08/22/23 21:38 - MEDICATIONS Home Medications: Ambulatory Orders Medication Instructions Recorded Confirmed Fludrocortisone [Florinef] 0.1 mg PO DAILY 3 Days #30 tab 08/26/23 Magnesium Oxide [Mag Ox] 400 mg PO DAILYWM 10 Days #10 tab 08/26/23 metFORMIN [Glucophage] 500 mg PO BIDWM #60 tab 08/26/23 - PHYSICAL EXAM AT DISCHARGE General Appearance: positive: No acute distress, Alert Eyes Bilateral: positive: No lid inflammation Neck: positive: No JVD, Trachea midline Respiratory: positive: Other (Good air exchange in all lung rendon no wheezing no crackles.) Cardiovascular: positive: Other (Positive S1-S2 no extra heart sounds.) Abdomen: positive: Other (Soft nontender nondistended positive bowel sounds) Extremities: positive: Nml appearance Neurologic/Psychiatric: positive: Oriented x3, Motor nml - LABS Result Diagrams: 08/25/23 05:17 08/26/23 04:47 - QUALITY (Female Hip Fx Only) Was patient sent home on osteoporosis medication?: No - TIME SPENT Time Spent in Discharge (Minutes): 31
[2023-08-26 16:38] VITALS: O2SAT 97
[2023-08-26 16:58] VITALS: BP 129/79
== END 2023-08-26 17:40 | disposition home or self-care (01) | DRG 312 ==
LOC: EDUNIT# → ED 21:33 → MS3 08-23 02:50 → OBSVTOIN 08-25 12:35
PROVIDERS: ADMIT Internal Medicine; ATTEND Internal Medicine
DX: I95.1 Orthostatic hypotension (principal); R53.1 Weakness; E87.1 Hypo-osmolality and hyponatremia; E11.42 Type 2 diabetes mellitus with diabetic polyneuropathy; E11.65 Type 2 diabetes mellitus with hyperglycemia; E83.42 Hypomagnesemia; R00.0 Tachycardia, unspecified; I10 Essential (primary) hypertension; G47.33 Obstructive sleep apnea (adult) (pediatric); R42 Dizziness and giddiness; T38.3X6A Underdosing of insulin and oral hypoglycemic [antidiabetic] drugs, initial encounter; T50.916A Underdosing of multiple unspecified drugs, medicaments and biological substances, initial encounter; I35.8 Other nonrheumatic aortic valve disorders; I25.10 Atherosclerotic heart disease of native coronary artery without angina pectoris; I25.2 Old myocardial infarction; H54.7 Unspecified visual loss; E86.0 Dehydration; Z87.891 Personal history of nicotine dependence; Z91.128 Patient's intentional underdosing of medication regimen for other reason; Z91.148 Patient's other noncompliance with medication regimen for other reason; Z95.1 Presence of aortocoronary bypass graft
CPT/HCPCS: 36415; 71045; 80048; 80053; 80061; 81001; 82009; 82803; 83036; 83690; 83735; 84100; 84443; 84484; 85025; 93005; 93307; 96372; 97161; 97164; 97165; 99285; A9270; G0378; J1650; 81003; 83721; 87086

== ENCOUNTER 2024-03-18 22:22 | Inpatient (IN) ==
--- NOTE | 2024-03-18 22:36 | ED Physician Documentation ---
History of Present Illness Stated complaint Stated Complaint: FTT Chief complaint Chief Complaint: General History obtained from History obtained from: Patient Additonal information Additional information: 68yM with recent ED visit with developing osteomyelitis to L heel p/w weakness and diarrhea at home. also tachycardic, tachypneic. brother is unable to care for him at home. patient unable to give history. he presents covered in feces. ems state the home is covered in feces and the occupants appear to be hoarding. home is in disrepair. Meds/Allgy Home Medications Ambulatory Orders Medication Instructions Recorded Confirmed fludrocortisone 0.1 mg tablet 0.1 mg PO DAILY 3 days #30 tabs 08/26/23 magnesium oxide 400 mg (241.3 mg 400 mg PO DAILYWM 10 days #10 tabs 08/26/23 magnesium) tablet metformin 500 mg tablet 500 mg PO BIDWM Type II Diabetes 08/26/23 Mellitus #60 tabs amoxicillin 875 mg-potassium 1 tab PO BID #20 tabs 02/13/24 clavulanate 125 mg tablet Allergies Allergies Allergy/AdvReac Type Severity Reaction Status Date / Time No Known Drug Allergies Allergy Verified 03/18/24 22:43 [facility] Social History Social History Smoking Status: Former smoker If you are a former smoker, when did you quit? (Date/Year): 04/23/23 Number of Years Smoked: 50 How many cigarettes a day do you smoke? (20 cigarettes=1 Pk): 20 Do you dip or chew tobacco?: No Patient requests smoking cessation consult: No Initiate information on smoking cessation: No Relationship: Level: Independent Home Mobility Equipment: Cane Do you feel safe in your home environment?: Yes Suffered physical, verbal, emotional, or financial abuse?: No History of Abuse: No POLST Patient has POLST: No Exam Constitutional disheveled appearing, thin, deconditioned, covered in feces HENMT normocephalic, head/scalp atraumatic and oropharynx normal Eyes PERRL Chest inspection of chest normal Respiratory breath sounds equal bilaterally, normal respiratory effort and clear to auscultation bilaterally Cardiovascular regular rhythm noted tachycardic rate Gastrointestinal abdomen normal to inspection, abdomen soft to palpation and nontender to palpation Genitourinary scrotal erythema c/w cutaneous candidiasis Back/Pelvis spine normal to inspection Extremities L heel and L calf grossly purulent ulcers. 2+ BL dp pulses Results Vitals Vitals: Vital Signs - 24 hr 03/18/24 22:32 03/18/24 22:54 03/18/24 23:02 Temperature 36.5 C Temperature Source Tympanic Pulse Rate 97 H 128 H Respiratory Rate 22 20 Blood Pressure 88/62 L 132/98 H 63/23 L O2 Saturation 94 96 O2 Source Room air Room air Pain Intensity 10 10 10 03/18/24 23:02 03/18/24 23:10 03/18/24 23:27 Temperature Temperature Source Pulse Rate 138 H 139 H 143 H Respiratory Rate 20 22 18 Blood Pressure 118/94 H 145/94 H 126/81 O2 Saturation 93 98 95 O2 Source Room air Room air Room air Pain Intensity 10 10 8 03/18/24 23:45 03/19/24 00:00 03/19/24 00:30 Temperature Temperature Source Pulse Rate 128 H 121 H 128 H Respiratory Rate 18 18 18 Blood Pressure 95/69 82/70 L 98/69 O2 Saturation 96 96 98 O2 Source Room air Room air Room air Pain Intensity 4 2 2 Oxygen O2 Source Room air Labs Labs: Microbiology 03/18/24 22:40 Wound Culture - Preliminary Foot - Left 03/18/24 22:40 Wound Culture - Preliminary Leg - Left Laboratory Tests 03/18/24 03/18/24 22:47 23:20 WBC 34.7 H RBC 5.06 Hgb 13.7 L Hct 43.2 MCV 85.4 MCH 27.1 MCHC 31.7 L RDW 13.9 Plt Count 359 MPV 9.9 Neut # (Auto) 32.6 H Lymph # (Auto) 0.6 L [place] # (Auto) 0.9 Eos # (Auto) 0.1 Baso # (Auto) 0.2 H Absolute Nucleated RBC 0.00 Band Neuts % (Manual) Not Reportable Abnorm Lymph % (Manual) Not Reportable Nucleated RBC % 0.0 Neutrophils # (Manual) Not Reportable Lymphocytes # (Manual) Not Reportable Monocytes # (Manual) Not Reportable Eosinophils # (Manual) Not Reportable Basophils # (Manual) Not Reportable Differential Comment MANUA WBC Morphology NORMAL APPEARANCE Platelet Estimate NORMAL (130-450,000) Platelet Morphology NORMAL APPEARANCE RBC Morph Micro Appear NORMAL APPEARANCE Sodium 128 L Potassium 5.1 H Chloride 92 L Carbon Dioxide 24 Anion Gap 12.0 BUN 47 H Creatinine 0.7 Estimated GFR (MDRD) 112 Glucose 420 H Lactic Acid 5.1 H* Calcium 8.4 L Total Bilirubin 1.0 AST 15 ALT 11 Alkaline Phosphatase 180 H Total Protein 5.8 L Albumin 1.8 L Globulin 4.0 Albumin/Globulin Ratio 0.5 L Urine Color DARK YELLOW Urine Clarity CLEAR Urine pH 6.0 Ur Specific [place] 1.020 Urine Protein 30 H Urine Glucose (UA) >=1000 H Urine Ketones 15 H Urine Occult Blood TRACE-INTA Urine Nitrite NEGATIVE Urine Bilirubin SMALL H Urine Urobilinogen 1 (NORMAL) Ur Leukocyte Esterase NEGATIVE Urine RBC 0-5 Urine WBC 0-3 Ur Squamous Epith Cells NONE SEEN Urine Bacteria Rare Urine Casts 6-10 Hyaline Casts Urine Culture Comments NOT INDICATED PD Medical Decision Making ED course ED course: 68yM presents to the ED floridly septic with soft BP, tachycardia, tachypnea, covered in feces, leaking pus from L heel ulcer. also with scrotal erythema c/w likely fungal infection. Septic workup undertaken and 30cc/kg bolus as well as vanc/cefepime ordered. cxr negative for pathology. WBC 34.7, lactic acid 5.1. d/w Dr. Mott who recommends admission and CT leg with MRI leg in the morning when available. He likely will need to take to the OR and may need to amputate above the knee. Discharge Plan Discharge Patient Disposition: 66 [facility] DC/Xfer Condition: Fair Clinical Impression: Diarrhea, Sepsis, Osteomyelitis Prescriptions: No Action metformin 500 MG tablet 500 mg PO BIDWM Qty: 60 3RF Rx Instructions: Take 1 tablet twice daily. magnesium oxide 400 MG tablet 400 mg PO DAILYWM 10 Days Qty: 10 0RF fludrocortisone 0.1 MG tablet 0.1 mg PO DAILY 3 Days Qty: 30 0RF amoxicillin-pot clavulanate 875-125 mg tablet 1 tab PO BID Qty: 20 0RF Print Language: Ethiopian Stand Alone Forms: PCP List
[2024-03-18] MEDS ORDERED: VANCOMYCIN 1 GM VIAL ONE (22:48)
[2024-03-18] MEDS: CEFEPIME 2 GM in SODIUM CHLORIDE 0.9% MINIBAG 100 ML IV STA (22:49)
[2024-03-18] MEDS: SODIUM CHLORIDE 0.9% 2,000 ML IV ONE (22:50)
[2024-03-18] MEDS: VANCOMYCIN INJ 1.5 GM in SODIUM CHLORIDE 0.9% 500 ML IV STA (22:52)
[2024-03-18 22:53] LABS: BASOPHILS # (AUTO) 0.2 10^3/uL (0.0-0.1); BASOPHILS % (AUTO) 0.5 %; EOSINOPHILS # (AUTO) 0.1 10^3/uL (0.0-0.7); EOSINOPHILS % (AUTO) 0.2 %; HCT - HEMATOCRIT 43.2 % (42.0-52.0); HGB - HEMOGLOBIN 13.7 g/dL (14.0-18.0); LYMPHOCYTES # (AUTO) 0.6 10^3/uL (1.5-3.5); LYMPHOCYTES % (AUTO) 1.8 %; MEAN CORPUSCULAR HEMOGLOBIN 27.1 pg (27.0-31.0); MEAN CORPUSCULAR HGB CONC 31.7 g/dL (32.0-36.0); MEAN CORPUSCULAR VOLUME 85.4 fL (80.0-94.0); MEAN PLATELET VOLUME 9.9 fL (7.4-11.4); MONOCYTES # (AUTO) 0.9 10^3/uL (0.0-1.0); MONOCYTES % (AUTO) 2.5 %; NEUTROPHILS # (AUTO) 32.6 10^3/uL (1.5-6.6); PLT - PLATELET COUNT 359 10^3/uL (130-450); RED BLOOD COUNT 5.06 10^6/uL (4.70-6.10); RED CELL DISTRIBUTION WIDTH 13.9 % (12.0-15.0); WHITE BLOOD COUNT 34.7 x10^3/uL (4.8-10.8)
[2024-03-18 23:11] LABS: ALBUMIN 1.8 g/dL (3.2-5.5); ALBUMIN/GLOBULIN RATIO 0.5 (1.0-2.2); CALCIUM 8.4 mg/dL (8.5-10.3); CREATININE 0.7 mg/dL (0.6-1.3); POTASSIUM 5.1 mmol/L (3.5-4.5); TOTAL PROTEIN 5.8 g/dL (6.4-8.9)
[2024-03-18 23:12] LABS: LACTIC ACID, VENOUS 5.1 mmol/L (0.5-2.2)
[2024-03-18 23:23] LABS: DIFFERENTIAL COMMENT MANUA; PLATELET ESTIMATE, MANUAL NORMAL (130-450,000) (NORMAL); PLATELET MORPHOLOGY NORMAL APPEARANCE (NORMAL); RBC MORPHOLOGY (MULTIPLE) NORMAL APPEARANCE (NORMAL); WBC MORPHOLOGY (MULTIPLE) NORMAL APPEARANCE (NORMAL)
[2024-03-18 23:34] LABS: BILIRUBIN,URINE SMALL (NEGATIVE); GLUCOSE, URINE (UA) >=1000 mg/dL (NEGATIVE); KETONES,URINE (UA) 15 mg/dL (NEGATIVE); LEUKOCYTE ESTERASE, URINE NEGATIVE (NEGATIVE); NITRITE,URINE NEGATIVE (NEGATIVE); OCCULT BLOOD,URINE TRACE-INTA (NEGATIVE); PROTEIN,URINE 30 mg/dL (NEGATIVE); UROBILINOGEN,URINE 1 (NORMAL) E.U./dL (NORMAL)
[2024-03-18 23:35] LABS: CLARITY,URINE CLEAR (CLEAR)
[2024-03-18 23:46] LABS: BACTERIA,URINE Rare /HPF (None Seen); CASTS, URINE 6-10 Hyaline Casts /LPF; RBC,URINE 0-5 /HPF (0-5); SQUAMOUS EPITHELIAL CELL,UR NONE SEEN (<= Few); WBC,URINE 0-3 /HPF (0-3)
--- NOTE | 2024-03-19 00:08 | XRAY Report ---
PROCEDURE: XR Ankle 3+V LT INDICATIONS: osteomyelitis, ulcer foot/ankle/heel TECHNIQUE: 3 views of the ankle were acquired. COMPARISON: X-ray tibia-fibula 03/18/2020 FINDINGS: Bones: No fractures or dislocations. Ankle mortise is normally aligned. Slight lucency of the poste rior calcaneal cortex present inferior to the soft tissue wound. Soft tissues: No tibiotalar joint effusion. Achilles tendon appears normal. Soft tissue ulcer is p resent at the superior aspect of the posterior calcaneus. IMPRESSION: Small lucency the posterior calcaneal cortex immediately adjacent to the soft tissue wound. Early ost eomyelitis should be considered. Reviewed by: Rosalee Sena MD on 03/19/2024 12:06 AM PST Approved by: Rosalee Sena MD on 03/19/2024 12:06 AM PST Station ID: [id number]
--- NOTE | 2024-03-19 00:09 | XRAY Report ---
PROCEDURE: XR Chest 1V INDICATIONS: Sepsis TECHNIQUE: One view of the chest was acquired. COMPARISON: Chest x-ray 08/22/2023 FINDINGS: Surgical changes and devices: Sternal wires. Lungs and pleura: No pleural effusions or pneumothorax. Lungs are clear. Mediastinum: Mediastinal contours appear normal. Heart size is normal. Bones and chest wall: No suspicious bony lesions. Overlying soft tissues appear unremarkable. IMPRESSION: No acute cardiopulmonary process. Reviewed by: Rosalee Sena MD on 03/19/2024 12:07 AM PST Approved by: Rosalee Sena MD on 03/19/2024 12:07 AM [facility] Station ID: [id number]
--- NOTE | 2024-03-19 00:12 | XRAY Report ---
PROCEDURE: XR Tib/Fib LT INDICATIONS: calf ulcer TECHNIQUE: 2 views of the tibia and fibula were acquired. COMPARISON: X-ray ankle 03/18/2024 FINDINGS: Bones: No fractures or dislocations. Posterior calcaneal lucency is present adjacent to soft tissue wound. Soft tissues: No suspicious soft tissue calcifications or masses. Soft tissue wound overlying the posterior superior calcaneus. Soft tissue edema with areas of lucency are present overlying the calf and soft tissues the level of the knee. IMPRESSION: Cortical lucency at the calcaneus adjacent to soft tissue wound suggestive developing osteomyelitis. Lucencies within the soft tissues of the calf as well as overlying the knee. This may be related to c ellulitis and direct correlation is recommended. Reviewed by: Rosalee Sena MD on 03/19/2024 12:11 AM PST Approved by: Rosalee Sena MD on 03/19/2024 12:11 AM PST Station ID: [id number]
[2024-03-19] MEDS: INSULIN REGULAR, HUMAN 300 UNIT/3 ML PEN IVP STA (00:31)
[2024-03-19] MEDS: SODIUM CHLORIDE 0.9% 1,500 ML IV ONE (00:49)
[2024-03-19] MEDS ORDERED: iohexoL-300 100 ML VIAL ONE (01:11)
[2024-03-19] MEDS: ACETAMINOPHEN 650 MG SUPP PR STA (01:12)
[2024-03-19] MEDS ORDERED: oxyCODONE 5 MG TABLET PO PRN (01:30)
[2024-03-19] MEDS ORDERED: ONDANSETRON 4 MG/2 ML VIAL IVP PRN (01:30)
[2024-03-19] MEDS ORDERED: SODIUM CHLORIDE FLUSH 0.9% 10 ML SYRINGE IVP PRN (01:30)
[2024-03-19] MEDS ORDERED: ONDANSETRON ODT 4 MG TABLET TL PRN (01:30)
[2024-03-19] MEDS ORDERED: ACETAMINOPHEN 325 MG TABLET PO PRN (01:30)
--- NOTE | 2024-03-19 01:59 | HISTORY & PHYSICAL EXAMINATION ---
Chief Complaint Chief Complaint Chief Complaint: Loose stools History of Present Illness Admitted From Admitted From:: ER History Obtained From Records Reviewed: Yes History obtained from: Pt, staff, chart Exam Limitations: Virtual exam History of Present Illness HPI Comment/Other: H&P was conducted via video remotely, using [employer]. [facility] [place] [facility] [facility]. No one is at bedside. 68 yo M with PMH of CAD s/p CABG, HTN, DM type 2 with Peripheral Neuropathy, RADHA, NC with medications presented to the ER via EMS for c/o loose stool x 3 months. Pt reports having had loose stool continously x months with uncountable BMs/day, as his stool is continuously oozing out. No abdo pain. No N/V. He says that he has not been on any medication, including antibiotics x months. No CP/F/C/cough. +SOB. EMS reported that the home was covered in feces and squalor and looks like a hoarder's home. No N/V/abdo pain. Pt was covered in feces upon arrival to the ER. Pt had previously been seen in the ER on 02/13/24 for c/o 2 mth h/o L foot wound that he had not previously noted d/t his Neuropathy. Xray showed early signs of possible Osteomyelitis. Pt was given antibiotics. Pt says that he did not take the antibiotics. No pain in L leg now. In the ER, HR 131, LA 5.1, CRP 35.7, WBC 34.7, Glc 420, Na 128, K 5.1 BC pending, wound cx pending CXR: NAD L Tib/Fib Xray: Cortical lucency at the calcaneus adjacent to soft tissue wound suggestive developing osteomyelitis. Lucencies within the soft tissues of the calf as well as overlying the knee. This may be related to cellulitis and direct correlation is recommended. CT leg: pending Pt was given IVF 3L, Reg Insulin 10 U IV, Tylenol, Cefepime/Vanco IV in the ER. ER Physician D/W Orthopedic Surgeon, Dr. Mott, who recommends admission and CT leg with MRI leg in the morning when available. He likely will need to take to the OR and may need to amputate above the knee. Review of Systems Status of ROS: 10 or more systems reviewed and unremarkable except as noted in history and below PFSH Social History Social History Smoking Status: Former smoker If you are a former smoker, when did you quit? (Date/Year): 04/23/23 Number of Years Smoked: 50 How many cigarettes a day do you smoke? (20 cigarettes=1 Pk): 20 Do you dip or chew tobacco?: No Patient requests smoking cessation consult: No Initiate information on smoking cessation: No Relationship: Level: Independent Home Mobility Equipment: Cane Do you feel safe in your home environment?: Yes Suffered physical, verbal, emotional, or financial abuse?: No History of Abuse: No POLST Patient has POLST: No Meds/Allgy Home Medications Ambulatory Orders Medication Instructions Recorded Confirmed fludrocortisone 0.1 mg tablet 0.1 mg PO DAILY 3 days #30 tabs 08/26/23 magnesium oxide 400 mg (241.3 mg 400 mg PO DAILYWM 10 days #10 tabs 08/26/23 magnesium) tablet metformin 500 mg tablet 500 mg PO BIDWM Type II Diabetes 08/26/23 Mellitus #60 tabs amoxicillin 875 mg-potassium 1 tab PO BID #20 tabs 02/13/24 clavulanate 125 mg tablet Allergies Allergies Allergy/AdvReac Type Severity Reaction Status Date / Time No Known Drug Allergies Allergy Verified 03/18/24 22:43 Exam Constitutional normal general appearance Per ER Physician: disheveled appearing, thin, deconditioned, covered in feces HENMT normocephalic Dry OM Eyes PERRL and no scleral icterus Respiratory cart stethoscope not working; per ER Provider: breath sounds equal bilaterally, normal respiratory effort and clear to auscultation bilaterally Cardiovascular cart stethoscope not working; per ER Provider: regular rhythm, tachycardic Gastrointestinal per ER Provider: abdomen normal to inspection, abdomen soft to palpation and nontender to palpation Genitourinary per ER Provider: scrotal erythema Extremities per ER Provider: L heel and L calf grossly purulent ulcers. 2+ BL dp pulses Neurology A+Ox3, normal speech, per ER Provider: NFD Conclusion/Plan Problem List (1) Osteomyelitis: Plan: LLE Osteomyelitis Sepsis Tachycardia Leukocytosis Lactic Acidosis Elevated CRP -HR 131, LA 5.1, CRP 35.7, WBC 34.7, Na 128, K 5.1 -BC pending, wound cx pending -CXR: NAD -L Tib/Fib Xray: Cortical lucency at the calcaneus adjacent to soft tissue wound suggestive developing osteomyelitis. Lucencies within the soft tissues of the calf as well as overlying the knee. This may be related to cellulitis and direct correlation is recommended. -CT leg: pending -Pt was given IVF 3L, Reg Insulin 10 U IV, Tylenol, Cefepime/Vanco IV in the ER. -ER Physician D/W Orthopedic Surgeon, Dr. Mott, who recommends admission and CT leg with MRI leg in the morning when available. He likely will need to take to the OR and may need to amputate above the knee. -admit to Med Surg -IVF -continue IVF, Vanco/Cefepime -Pharmacy consult for Vanco dosing -MRI LLE ordered -mgmt per Orthopedic Surgeon Diarrhea -Stool GI profile and CDiff ordered Scrotal candidiasis -Miconazole ordered CAD s/p CABG HTN -BP currently normal in presence of sepsis -not on meds -restart ASA s/p possible surgical intervention DM type 2 with Peripheral Neuropathy NC with meds -Glc 420 -Pt was given Reg Insulin 10 U IV in the ER. -accuchecks, SS Insulin, Hypoglycemic protocol -check Hgba1c RADHA -not on CPAP NC with medications Squalid home conditions -pt has concerns about medication side effects and loses medications -SW consult VTE Prophylaxis: Heparin Code Status: D/W pt; he is Full Code ~Magda Boyer MD Hospitalist Lab Results Lab results reviewed: Yes 03/18/24 22:47 03/18/24 22:47
[2024-03-19] MEDS: LACTATED RINGERS 1,000 ML IV SCH (02:28)
[2024-03-19] MEDS ORDERED: MICONAZOLE CREAM 118 ML TUBE TOP SCH (03:00)
[2024-03-19] MEDS: iohexoL-300 100 ML VIAL IVP ONE (03:11)
[2024-03-19 05:52] LABS: BASOPHILS # (AUTO) 0.2 10^3/uL (0.0-0.1); BASOPHILS % (AUTO) 0.6 %; EOSINOPHILS # (AUTO) 0.1 10^3/uL (0.0-0.7); EOSINOPHILS % (AUTO) 0.3 %; HCT - HEMATOCRIT 41.3 % (42.0-52.0); HGB - HEMOGLOBIN 13.3 g/dL (14.0-18.0); LYMPHOCYTES # (AUTO) 0.4 10^3/uL (1.5-3.5); LYMPHOCYTES % (AUTO) 1.3 %; MEAN CORPUSCULAR HEMOGLOBIN 27.5 pg (27.0-31.0); MEAN CORPUSCULAR HGB CONC 32.2 g/dL (32.0-36.0); MEAN CORPUSCULAR VOLUME 85.5 fL (80.0-94.0); MEAN PLATELET VOLUME 10.1 fL (7.4-11.4); MONOCYTES # (AUTO) 0.5 10^3/uL (0.0-1.0); MONOCYTES % (AUTO) 1.7 %; NEUTROPHILS # (AUTO) 25.7 10^3/uL (1.5-6.6); NEUTROPHILS % (AUTO) 95.5 %; PLT - PLATELET COUNT 301 10^3/uL (130-450); RED BLOOD COUNT 4.83 10^6/uL (4.70-6.10); RED CELL DISTRIBUTION WIDTH 13.9 % (12.0-15.0); WHITE BLOOD COUNT 26.9 x10^3/uL (4.8-10.8)
[2024-03-19 06:08] LABS: CALCIUM 7.3 mg/dL (8.5-10.3); CREATININE 0.6 mg/dL (0.6-1.3); MAGNESIUM 1.7 mg/dL (1.7-2.3); POTASSIUM 4.1 mmol/L (3.5-4.5)
[2024-03-19 06:14] LABS: LACTIC ACID, VENOUS 5.1 mmol/L (0.5-2.2)
[2024-03-19 06:19] LABS: PLATELET ESTIMATE, MANUAL NORMAL (130-450,000) (NORMAL); PLATELET MORPHOLOGY NORMAL APPEARANCE (NORMAL); RBC MORPHOLOGY (MULTIPLE) NORMAL APPEARANCE (NORMAL); WBC MORPHOLOGY (MULTIPLE) NORMAL APPEARANCE (NORMAL)
[2024-03-19 06:20] LABS: DIFFERENTIAL COMMENT MANUA
--- NOTE | 2024-03-19 06:37 | CONSULTATION NOTE ---
Referring Provider Name of Referring Provider:: Dr. Walker Consult Date: 03/19/24 Chief Complaint Chief Complaint Chief Complaint: Diarrhea and Left Lower Leg Abscess History of Present Illness Admitted From Admitted From:: ED History of Present Illness HPI Comment/Other: 68yo M with PMH of CAD s/p CABG, HTN, DM2 with peripheral neuropathy who presents to the ED for months of diarrhea and a left lower leg abscess. He was initally seen in the ED on 03/19/24 for a left heel and lower leg ulcer. He was found to have a 2m necrotic left heel ulcer with surrounding erythema. He was discharged to home with antibiotics and wound care. He presented to the ED again yesterday for continued diarrhea and left lower leg ulcer. He presented with hypotension, tachypnea, tachycardia, elevated WBC, lactic acid and CRP. He was also found to have two draining abscesses on the left lower leg. Orthopedics was then consulted. Patient is a poor historian. EMS reported that his living conditions were terrible and he was covered in feces when they picked him up. [facility] Social History Social History Smoking Status: Former smoker If you are a former smoker, when did you quit? (Date/Year): 04/23/23 Number of Years Smoked: 50 How many cigarettes a day do you smoke? (20 cigarettes=1 Pk): 20 Do you dip or chew tobacco?: No Do you vape?: No Patient requests smoking cessation consult: No Initiate information on smoking cessation: No Relationship: Level: Dependent Home Mobility Equipment: Walker Do you feel safe in your home environment?: No Suffered physical, verbal, emotional, or financial abuse?: No (STATES SUFFERS FROM MENTAL ABUSE) History of Abuse: No Substance Use: denies use POLST Patient has POLST: No Meds/Allgy Home Medications Ambulatory Orders Medication Instructions Recorded Confirmed fludrocortisone 0.1 mg tablet 0.1 mg PO DAILY 3 days #30 tabs 08/26/23 magnesium oxide 400 mg (241.3 mg 400 mg PO DAILYWM 10 days #10 tabs 08/26/23 magnesium) tablet metformin 500 mg tablet 500 mg PO BIDWM Type II Diabetes 08/26/23 Mellitus #60 tabs amoxicillin 875 mg-potassium 1 tab PO BID #20 tabs 02/13/24 clavulanate 125 mg tablet Allergies Allergies Allergy/AdvReac Type Severity Reaction Status Date / Time No Known Drug Allergies Allergy Verified 03/18/24 22:43 Results Lab Results 03/19/24 05:47 03/19/24 05:47 Other Lab Results: Lab Results x24hrs 03/19/24 03/18/24 03/18/24 Range/Units 05:47 23:20 22:47 WBC 26.9 H 34.7 H (4.8-10.8) x10^3/uL RBC 4.83 5.06 (4.70-6.10) 10^6/uL Hgb 13.3 L 13.7 L (14.0-18.0) g/dL Hct 41.3 L 43.2 (42.0-52.0) % MCV 85.5 85.4 (80.0-94.0) fL MCH 27.5 27.1 (27.0-31.0) pg MCHC 32.2 31.7 L (32.0-36.0) g/dL RDW 13.9 13.9 (12.0-15.0) % Plt Count 301 359 (130-450) 10^3/uL MPV 10.1 9.9 (7.4-11.4) fL Neut # (Auto) 25.7 H 32.6 H (1.5-6.6) 10^3/uL Lymph # (Auto) 0.4 L 0.6 L (1.5-3.5) 10^3/uL Carbon # (Auto) 0.5 0.9 (0.0-1.0) 10^3/uL Eos # (Auto) 0.1 0.1 (0.0-0.7) 10^3/uL Baso # (Auto) 0.2 H 0.2 H (0.0-0.1) 10^3/uL Absolute Nucleated RBC 0.00 0.00 x10^3/uL Band Neuts % (Manual) Not Reportable Not Reportable Abnorm Lymph % (Manual) Not Reportable Not Reportable Nucleated RBC % 0.0 0.0 /100WBC Neutrophils # (Manual) Not Reportable Not Reportable Lymphocytes # (Manual) Not Reportable Not Reportable Monocytes # (Manual) Not Reportable Not Reportable Eosinophils # (Manual) Not Reportable Not Reportable Basophils # (Manual) Not Reportable Not Reportable Differential Comment MANUA MANUA WBC Morphology NORMAL APPEARANCE NORMAL APPEARANCE (NORMAL) Platelet Estimate NORMAL (130-450,000) NORMAL (130-450,000) (NORMAL) Platelet Morphology NORMAL APPEARANCE NORMAL APPEARANCE (NORMAL) RBC Morph Micro Appear NORMAL APPEARANCE NORMAL APPEARANCE (NORMAL) Sodium 131 L 128 L (135-145) mmol/L Potassium 4.1 5.1 H (3.5-4.5) mmol/L Chloride 100 L 92 L (101-111) mmol/L Carbon Dioxide 20 L 24 (21-32) mmol/L Anion Gap 11.0 12.0 (6-13) BUN 42 H 47 H (6-20) mg/dL Creatinine 0.6 0.7 (0.6-1.3) mg/dL Estimated GFR (MDRD) 134 112 (>89) Glucose 249 H 420 H (74-104) mg/dL Lactic Acid 5.1 H* 5.1 H* (0.5-2.2) mmol/L Calcium 7.3 L 8.4 L (8.5-10.3) mg/dL Magnesium 1.7 (1.7-2.3) mg/dL Total Bilirubin 1.0 (0.2-1.0) mg/dL AST 15 (10-42) IU/L ALT 11 (10-60) IU/L Alkaline Phosphatase 180 H (42-121) IU/L C-Reactive Protein 35.7 H (<0.5) mg/dL Total Protein 5.8 L (6.4-8.9) g/dL Albumin 1.8 L (3.2-5.5) g/dL Globulin 4.0 (2.1-4.2) g/dL Albumin/Globulin Ratio 0.5 L (1.0-2.2) Urine Color DARK YELLOW Urine Clarity CLEAR (CLEAR) Urine pH 6.0 (5.0-7.5) PH Ur Specific [place] 1.020 (1.002-1.030) Urine Protein 30 H (NEGATIVE) mg/dL Urine Glucose (UA) >=1000 H (NEGATIVE) mg/dL Urine Ketones 15 H (NEGATIVE) mg/dL Urine Occult Blood TRACE-INTA (NEGATIVE) Urine Nitrite NEGATIVE (NEGATIVE) Urine Bilirubin SMALL H (NEGATIVE) Urine Urobilinogen 1 (NORMAL) (NORMAL) E.U./dL Ur Leukocyte Esterase NEGATIVE (NEGATIVE) Urine RBC 0-5 (0-5) /HPF Urine WBC 0-3 (0-3) /HPF Ur Squamous Epith Cells NONE SEEN (<= Few) Urine Bacteria Rare (None Seen) /HPF Urine Casts 6-10 Hyaline Casts /LPF Urine Culture Comments NOT INDICATED Conclusion and Plan Diagnosis Diagnosis: Sepsis and Left lower leg abscess Plan Plan: Admission by IM to ICU for management of his Sepsis IV antibiotics Blood cultures NPO I&D of the Left lower extremity Consultation Note Consultation Note: 68yo septic male with PMH of DM2, CAD s/p CABG, and HTN who presents with ongoing diarrhea and two left lower leg abscesses. CT scan would suggest that there is an abscess originating from the posterior heel ulcer tracking proximally. Given his sepsis and surgical necessity, I recommended that this patient would be better served being transferred to a higher level of care. He will require an I&D of the left lower leg and potentially amputation. Abimael Mott MD Exam Exam LEFT Lower Leg two draining abscessed on the left lower extremity. 2cm ulcer on the heel with necrotic tissue and surrounding erythema. Second abscess is more proximal with draining purulence. Erythema and induration tracking proximally to the knee. Pain with deep palpation in the posterior thigh - however no skin changes noted.
[2024-03-19] MEDS: CEFEPIME 2 GM in SODIUM CHLORIDE 0.9% MINIBAG 100 ML IV SCH (06:42)
[2024-03-19] MEDS: LACTATED RINGERS 1,000 ML IV ONE (07:53)
[2024-03-19] MEDS: INSULIN LISPRO 300 UNIT/3 ML PEN SUBQ SCH (08:30)
--- NOTE | 2024-03-19 08:40 | CT Report ---
PROCEDURE: CT Lower Extremity LT W INDICATIONS: LLE osteomyselitis TECHNIQUE: After administration of contrast 3 mm axial sections acquired of the left lower extremity from just a kimberly the knee through the foot., with coronal and sagittal reformats. For radiation dose reduction, the following was used: automated exposure control, adjustment of mA and/or kV according to patient size. CONTRAST: 100 ML OMNI 300 COMPARISON: None. FINDINGS: Image quality: Excellent. Bones: There is osteomyelitis involving the posterior calcaneus. Soft tissues: There is extensive subcutaneous gas extending up and down the leg, into the distal fem oral tissues, above the level of imaging. There is extensive calf muscle compartment abscess without gas containing organism with extensive gas present in addition to fluid. The abscess extends from jus t below the knee to below the calf, and measures approximately 22.3 cm x 8.9 cm x 1.9 cm. Findings ar e highly consistent with necrotizing fasciitis. IMPRESSION: Calcaneal osteomyelitis, large muscle compartment abscess, findings highly consistent wi th necrotizing fasciitis, extensive subcutaneous gas extending above the level of imaging. Findings are concordant with preliminary interpretation provided by [facility]. Above discussed with Dr. Jake Scott MD, the hospitalist caring for the patient at the time of final dictation on 03/19/2024 at 0833 hours. Reviewed by: Alfonso Rutherford MD on 03/19/2024 8:39 AM PST Approved by: Alfonso Rutherford MD on 03/19/2024 8:39 AM PST Station ID: [id number]
[2024-03-19] MEDS: SODIUM CHLORIDE FLUSH 0.9% 10 ML SYRINGE IVP SCH (08:45)
[2024-03-19] MEDS: MAGNESIUM OXIDE 400 MG TABLET PO SCH (08:45)
[2024-03-19] MEDS: FLUDROCORTISONE 0.1 MG TABLET PO SCH (08:45)
[2024-03-19 08:56] VITALS: O2SAT 95
[2024-03-19] MEDS ORDERED: HEPARIN 5,000 UNIT/ML VIAL SUBQ SCH (09:00)
[2024-03-19 09:42] LABS: LACTIC ACID, VENOUS 2.7 mmol/L (0.5-2.2)
[2024-03-19] MEDS ORDERED: NYSTATIN CREAM 15 GM TUBE TOP SCH (10:00)
[2024-03-19 10:20] LABS: ESTIMATED AVERAGE GLUCOSE 263 mg/dL (70-100); HEMOGLOBIN A1c% 10.8 % (4.27-6.07)
[2024-03-19] MEDS: CLINDAMYCIN 600 MG/50 ML 50 ML IV SCH (10:23)
[2024-03-19] MEDS ORDERED: VANCOMYCIN INJ 1 GM in SODIUM CHLORIDE 0.9% 250 ML IV SCH (11:00)
[2024-03-19] MEDS: MICONAZOLE CREAM 118 ML TUBE TOP SCH (11:19)
--- NOTE | 2024-03-19 11:31 | Discharge Summary ---
"Discharge Summary Admit Date: 03/19/24 Discharge Date: 03/19/24 Discharging Provider: Dr. Arlin Scott Code Status: Attempt Resuscitation Discharge Facility Name: [facility] DIAGNOSES Admission Diagnoses: LLE Osteomyelitis Sepsis Tachycardia Leukocytosis Lactic Acidosis Elevated CRP Diarrhea Scrotal candidiasis CAD s/p CABG HTN DM type 2 with Peripheral Neuropathy RADHA Squalid home conditions Discharge Diagnoses with Status of Each Condition: Necrotizing fasciitis of left lower extremity lower extremity CT shows abscess of 22.3 cm x 8.9 cm x 1.9 cm. Calcaneal osteomyelitis, large muscle compartment abscess, findings highly consistent with necrotizing fasciitis, extensive subcutaneous gas extending above the level of imaging. Orthopedic surgeon spoken with at length - reccomend transfer to [facility] for surgery. Transferred to [facility] for further treatment. Spoke with [facility] surgery, as well as the emergency department there; [facility] out for transfer. Severe sepsisreceived cefepime and vancomycin. Switched to Zosyn, vancomycin, clindamycin for necrotizing fasciitis before transfer to [facility]. Normocytic anemialikely anemia of chronic disease. Continue to monitor. Hyponatremia Likely due to above, continue to monitor. Lactic acidosis Likely due to decreased p.o. intake and diarrhea, continue to monitor. Elevated CRPas above. Scrotal candidiasiscontinue miconazole powder. CAD s/p CABGevaluation by wafer fabricator at [facility] for cardiac status monitoring postanesthesia and emergent surgery. Hypertensionhold all antihypertensives as patient is borderline. Type 2 diabetes mellitus with peripheral neuropathycontinue sliding scale insulin. HPI History of Present Illness: Per Dr. Boyer: 68 yo M with PMH of CAD s/p CABG, HTN, DM type 2 with Peripheral Neuropathy, RADHA, NC with medications presented to the ER via EMS for c/o loose stool x 3 months. Pt reports having had loose stool continously x months with uncountable BMs/day, as his stool is continuously oozing out. No abdo pain. No N/V. He says that he has not been on any medication, including antibiotics x months. No CP/F/C/cough. +SOB. EMS reported that the home was covered in feces and squalor and looks like a hoarder's home. No N/V/abdo pain. Pt was covered in feces upon arrival to the ER. Pt had previously been seen in the ER on 02/13/24 for c/o 2 mth h/o L foot wound that he had not previously noted d/t his Neuropathy. Xray showed early signs of possible Osteomyelitis. Pt was given antibiotics. Pt says that he did not take the antibiotics. No pain in L leg now. In the ER, HR 131, LA 5.1, CRP 35.7, WBC 34.7, Glc 420, Na 128, K 5.1 BC pending, wound cx pending CXR: NAD L Tib/Fib Xray: Cortical lucency at the calcaneus adjacent to soft tissue wound suggestive developing osteomyelitis. Lucencies within the soft tissues of the calf as well as overlying the knee. This may be related to cellulitis and direct correlation is recommended. CT leg: pending Pt was given IVF 3L, Reg Insulin 10 U IV, Tylenol, Cefepime/Vanco IV in the ER. ER Physician D/W Orthopedic Surgeon, Dr. Mott, who recommends admission and CT leg with MRI leg in the morning when available. He likely will need to take to the OR and may need to amputate above the knee. CONSULTS | PROCEDURES Consultations: Orthopedic surgery Procedures: Tibula/fibula x-ray, lower extremity CT HOSPITAL COURSE Hospital Course: Patient is a 68-year-old male with a history of diabetes, CAD s/p CABG, lower extremity ulcerations who presented from home with worsening pain in his lower extremities. He was found to be septic, was hypotensive, tachycardic, had a leukocytosis as high as 34.7. Initial imaging, which was a tibia/fibula x-ray showed cortical lucency at calcaneus adjacent to soft tissue suggestive of developing osteomyelitis. CT scan was also done which showed osteomyelitis, large muscle compartment abscess with findings consistent with necrotizing fasciitis, extensive subcutaneous gas extending above the level of imaging. Orthopedic surgery was spoken with by myself first thing in the morning, and they recommended transfer to an acute care hospital for emergent surgery due to comorbidities, and possible complications with both anesthesia, and follow-up care. His antibiotics were switched from cefepime and vancomycin to vancomycin, Zosyn, and clindamycin. He was given IV fluids. In the meantime, Jose Carlos Conrad was spoken with. Initially, acute care surgeon was spoken with, who accepted the transfer. We will be transferring to the emergency room, so the ED physician was also spoken with, and given report. [facility] was called, and patient was transferred to the [facility] hospital due to acute nature of problem, and need for emergent surgery. ALLERGIES Allergies Allergy/AdvReac Type Severity Reaction Status Date / Time No Known Drug Allergies Allergy Verified 03/18/24 22:43 MEDICATIONS Ambulatory Orders Medication Instructions Recorded Confirmed fludrocortisone 0.1 mg tablet 0.1 mg PO DAILY 3 days #30 tabs 08/26/23 magnesium oxide 400 mg (241.3 mg 400 mg PO DAILYWM 10 days #10 tabs 08/26/23 magnesium) tablet metformin 500 mg tablet 500 mg PO BIDWM Type II Diabetes 08/26/23 Mellitus #60 tabs amoxicillin 875 mg-potassium 1 tab PO BID #20 tabs 02/13/24 clavulanate 125 mg tablet PHYSICAL EXAM AT DISCHARGE General Appearance: positive Mild distress Eyes Bilateral: positive PERRL and EOMI ENT: positive ENT inspection nml, Pharynx nml and No signs of dehydration Neck: positive Nml inspection, Thyroid nml and No JVD Respiratory: positive Chest non-tender, No respiratory distress and Breath sounds nml; negative Wheezes, Rales or Rhonchi Cardiovascular: positive Regular rate & rhythm and No murmur Abdomen: positive Non-tender, No distention and Tenderness Back: positive Nml inspection; negative CVA tenderness (R) or CVA tenderness (L) Skin: positive Color nml, Dry and Skin rash (extensive ulceration and purulent drainage noted of LLE) Extremities: positive Calf tenderness (LLE) Neurologic/Psychiatric: positive Disoriented to time LABS 03/19/24 05:47 03/19/24 05:47 DIAGNOSTIC IMAGING Diagnostic Imaging Results: Discussed with radiologist SEPSIS Current Stage of Sepsis: Severe sepsis Possible source of Sepsis: Skin/soft tissue Sepsis Criteria: Recorded Heart Rate greater than 90 bpm and WBC count greater than 10% bands QUALITY (Female Hip Fx Only) Was patient sent home on osteoporosis medication?: No FOLLOW UP Follow Up: Transferred to [facility]. TIME SPENT Time Spent in Discharge (Minutes): 45 Discharge Plan Discharge Patient Disposition: 02 Transfer Acute Care Hosp Condition: Fair Prescriptions: Continued magnesium oxide 400 MG tablet 400 mg PO DAILYWM 10 Days Qty: 10 0RF fludrocortisone 0.1 MG tablet 0.1 mg PO DAILY 3 Days Qty: 30 0RF Discontinued metformin 500 MG tablet 500 mg PO BIDWM Qty: 60 3RF Rx Instructions: Take 1 tablet twice daily. amoxicillin-pot clavulanate 875-125 mg tablet 1 tab PO BID Qty: 20 0RF Activity Restrictions: Activity as Tolerated Diet: Regular Health Concerns: Patient transferred to acute care hospital for nec fasc. Print Language: Ivorian Patient Instructions: Surgery Anesthesia After Stand Alone Forms: PCP List"
[2024-03-19] MEDS ORDERED: PIPERACILLIN/TAZOBACTAM 4.5 GM in SODIUM CHLORIDE 0.9% MINIBAG 100 ML IV SCH (12:00)
[2024-03-19] MEDS ORDERED: INSULIN LISPRO 300 UNIT/3 ML PEN SUBQ SCH (12:00)
== END 2024-03-19 11:05 | disposition short-term general hospital (02) | DRG 871 ==
LOC: ED 22:22 → MS3 03-19 01:30
PROVIDERS: ADMIT Internal Medicine; ATTEND Internal Medicine
DX: I49.3 Ventricular premature depolarization; I25.10 Atherosclerotic heart disease of native coronary artery without angina pectoris; Z87.891 Personal history of nicotine dependence; E11.42 Type 2 diabetes mellitus with diabetic polyneuropathy; L97.229 Non-pressure chronic ulcer of left calf with unspecified severity; E11.69 Type 2 diabetes mellitus with other specified complication; E87.1 Hypo-osmolality and hyponatremia; D63.8 Anemia in other chronic diseases classified elsewhere; A41.9 Sepsis, unspecified organism; M60.004 Infective myositis, unspecified left leg; E87.20 Acidosis, unspecified; R94.31 Abnormal electrocardiogram [ECG] [EKG]; M86.9 Osteomyelitis, unspecified; M72.6 Necrotizing fasciitis; Z95.1 Presence of aortocoronary bypass graft; R19.7 Diarrhea, unspecified; L97.429 Non-pressure chronic ulcer of left heel and midfoot with unspecified severity; I25.2 Old myocardial infarction; G47.33 Obstructive sleep apnea (adult) (pediatric); R65.20 Severe sepsis without septic shock; Z79.4 Long term (current) use of insulin; I10 Essential (primary) hypertension; B37.2 Candidiasis of skin and nail